=== PATIENT | female | born 1990 | race Caucasian/White ===

== ENCOUNTER → 2019-02-10 08:37 | Outpatient (CLI) | payer OTHER, MEDICAID, SELFPAY ==
--- NOTE | 2019-02-10 | DI.RAD.S_ITS ---
PROCEDURE: XR LUMBAR SPINE MIN 4V INDICATIONS: PAIN IN LEFT HIP TECHNIQUE: 5 views of the lumbar spine were acquired. COMPARISON: None. FINDINGS: Bones: 5 nonrib-bearing vertebrae are present. However, incidental note is made of partial lumbarization of the S1 vertebral body. There is normal bony alignment. No vertebral body compression fractures. No suspicious bony lesions. On the oblique images there are no pars interarticularis defects are evident. No significant degenerative changes of the lumbar spine are evident. There may be small Schmorl's nodes at L3-4 and L4-5. Intervertebral disc heights are well-maintained throughout the lumbar region. There is straightening of the normal lumbar lordosis without spondylolisthesis. Soft tissues: Overlying bowel gas pattern is normal. Moderate residual stool within the colon is noted. No suspicious soft tissue calcifications. Oblique images: No pars defects. IMPRESSION: 1. No significant degenerative changes of the lumbar spine. 2. Straightening of the normal lumbar lordosis without spondylolisthesis. No pars defects. Dictated by: Alfredo Galaviz M.D. on 02/10/2019 at 8:15 Approved by: Alfredo Galaviz M.D. on 02/10/2019 at 8:16
== END ==
PROVIDERS: Visit Provider Orthopaedic Surgery
DX: M25.552 Pain in left hip (principal); M54.32 Sciatica, left side
CPT/HCPCS: 72110

== ENCOUNTER 2019-08-04 22:24 | Emergency (ER) | payer OTHER, MEDICAID, SELFPAY ==
[2019-08-04 22:35] VITALS: BP 125/76; PULSE 96; RESP 20; TEMP 36.7; O2SAT 98; BMI 38.2
[2019-08-05 01:57] LABS: Add Manual Diff / Slide Review NO; Basophils Absolute Auto 0 /uL (0-100); Basophils Percent Auto 0.3 % (0-2); Eosinophils Absolute Auto 200 /uL (0-450); Hematocrit 38.7 % (36-46); Hemoglobin 13.4 g/dL (12.0-16.0); Lymphocytes Absolute Auto 3000 /uL (1100-4500); Lymphocytes Percent Auto 24.7 % (25-40); Mean Corpuscular HGB Conc 34.6 % (30-36); Mean Corpuscular Hemoglobin 29.2 PG (26-34); Mean Corpuscular Volume 84.4 fL (80-100); Monocytes Absolute Auto 800 /uL (0-900); Monocytes Percent Auto 6.3 % (3-14); Neutrophils Absolute Auto 8100 /uL (1500-7000); Neutrophils Percent Auto 66.7 % (50-75); Platelet Count 262 X10^3/uL (150-400); Red Blood Cell Count 4.59 X10^6/uL (4.0-5.2); Red Cell Distribution Width 12.8 % (11.6-14.8); White Blood Cell Count 12.1 X10^3/uL (4.5-11.0)
[2019-08-05 02:01] LABS: D Dimer 506 ng/mL (<230)
[2019-08-05 02:05] LABS: BUN Creatinine Ratio 18.8 (6-22); Blood Urea Nitrogen 15 mg/dL (7-17); C-Reactive Protein Quant 1.6 mg/dL (<1.0); Calcium 9.4 mg/dL (8.4-10.2); Carbon Dioxide 26 mmol/L (22-32); Chloride 103 mmol/L (98-107); Estimated Glomerular Filt Rate > 60.0 mL/min (>60); Glucose 82 mg/dL (70-100); HEMOLYSIS < 15 (0-50); Potassium 3.9 mmol/L (3.4-5.1); Sodium 139 mmol/L (137-145)
[2019-08-05 02:09] LABS: Erythrocyte Sedimentation Rate 7 MM/HR (0-20)
--- NOTE | 2019-08-05 02:39 | DI.US.S_ITS ---
PROCEDURE: US PERIPH VENOUS UP EXTREM RT INDICATIONS: PAIN, EDEMA TECHNIQUE: Real-time imaging, as well as color and pulse Doppler interrogation, was performed of the right upper extremity deep veins from the inferior neck to the antecubital fossa. COMPARISON: None. FINDINGS: The internal jugular vein, visualized portions of the subclavian vein, axillary, and brachial veins are free of intraluminal thrombus. Where physically possible, the veins are normally compressible. Color and pulse Doppler demonstrate normal intraluminal flow, with expected phasicity and pulsatility. Additional scanning of the cephalic and basilic veins of the superficial system demonstrate normal compressibility, without thrombus. IMPRESSION: Negative for deep venous thrombosis. Note: No significant discrepancy from the preliminary report. Dictated by: Perfecto Bello M.D. on 08/05/2019 at 9:28 Approved by: Perfecto Bello M.D. on 08/05/2019 at 9:28
--- NOTE | 2019-08-05 04:49 | ED.EXTPRO ---
HPI - Extremity Problem General Chief complaint: Extremity Problem,Nontraumatic Stated complaint: right arm numbness x3 days Time Seen by Provider: 08/05/19 00:38 Source: patient Mode of arrival: Ambulatory Limitations: no limitations History of Present Illness HPI Narrative: 29-year-old female daily smoker without significant medical history presents with a chief complaint of right arm pain starting with her index and middle finger and radiating up to her mid upper arm. She denies any injury nor numbness, tingling or weakness. She does state that she uses her right arm for significant amounts of work during the day and it seems to be worse with motion and improves with rest. She denies any injuries, recent IVs or history of blood clot. She has been on control for the past 3 weeks and smokes. Related Data Allergies Allergy/AdvReac Type Severity Reaction Status Date / Time No Known Drug Allergies Allergy Verified 08/04/19 22:40 Review of Systems Constitutional Constitutional: Denies chills, Denies fatigue, Denies fever(s), Denies frequent falls, Denies lethargy and Denies weakness Eyes Eyes: Denies change in vision, Denies eye discharge, Denies irritation and Denies loss of vision ENT Ears, Nose, Mouth, and Throat: Denies change in voice, Denies dizziness, Denies neck pain, Denies sore throat and Denies throat swelling Cardiovascular Cardiovascular: Denies chest pain, Denies irregular heart rhythm, Denies lightheadedness, Denies palpitations, Denies dyspnea, Denies dyspnea on exertion and Denies orthopnea Respiratory Respiratory: Denies cough, Denies dyspnea, Denies dyspnea on exertion and Denies wheezing Gastrointestinal Gastrointestinal: Denies abdominal pain, Denies change in bowel habits, Denies diarrhea, Denies nausea and Denies vomiting Genitourinary Genitourinary: Denies hematuria, Denies flank pain, Denies urinary incontinence and Denies urinary urgency Musculoskeletal Musculoskeletal: Denies back pain, Reports limited range of motion, Denies muscle weakness, Denies neck pain, Denies numbness, Reports radiating pain into limb and Denies tingling Integumentary/Breasts Skin/Breast: Denies pruritus, Denies erythema, Denies rash and Denies wounds Neurologic Neurologic: Denies behavioral changes, Denies confusion, Denies dizziness, Denies frequent falls, Denies loss of vision, Denies numbness, Denies tingling and Denies weakness Psychiatric Psychiatric: Denies anxiety, Denies behavioral changes, Denies confusion, Denies depression, Denies homicidal ideation and Denies suicidal ideation Endocrine Endocrine: Denies fatigue, Denies flushing and Denies palpitations Hematologic/Lymphatic Hematologic/Lymphatic: Denies easy bruising Allergic/Immunologic Allergic/Immunologic: Denies urticaria, Denies throat swelling and Denies wheezing Patient History Social History Smoking Status: Current every day smoker Smoking Status: Current every day smoker alcohol intake frequency: 0-2 drinks per day Substance Use Type: does not use Exam Narrative Exam Narrative: GENERAL: [29] year old patient appears stated age. Well-nourished, well-developed patient, in mild distress. HEAD: Atraumatic. Normocephalic. EYES: Pupils equal round and reactive. Extraocular motions intact. No scleral icterus. No injection or drainage. ENT: Nose without bleeding, purulent drainage. Throat without erythema, tonsillar hypertrophy or exudate. Airway patent. NECK: Trachea midline. Non tender CARDIOVASCULAR: Regular rate and rhythm without murmurs, gallops, or rubs. RESPIRATORY: Clear to auscultation. Breath sounds equal bilaterally. No wheezes, rales, or rhonchi. GASTROINTESTINAL: Abdomen soft, non-tender, nondistended. EXTREMITIES: Mild right upper extremity edema, sensation, strength and range of motion intact. Cap refills less than 2 seconds and distal radius pulse is bounding. Patient does have tenderness to palpation along the majority of her arm. BACK: Nontender without deformity or crepitance. No flank tenderness. NEURO: AOx3. SKIN: No rash or erythema of visible areas Initial Vital Signs Initial Vital Signs: Vital Signs Temperature 98.0 F 08/04/19 22:35 Pulse Rate 96 H 08/04/19 22:35 Respiratory Rate 20 08/04/19 22:35 Blood Pressure 125/76 08/04/19 22:35 Pulse Oximetry 98 08/04/19 22:35 Procedures Orthopedic Splinting/Casting Injury #1: Side: right Upper Extremity Injury Location: upper arm, forearm and wrist Upper Extremity Immobilizer: sling/shoulder immobilizer Post splinting neuro exam: intact Post splinting vascular exam: intact Placed by: Nursing Course Orders Ordered: ED Orders 08/05/19 01:43 Basic Metabolic Panel Stat C-Reactive Protein Quant Stat Complete Blood Count AUTO DIFF Stat D Dimer Stat Erythrocyte Sedimentation Rate Stat 08/05/19 02:39 US periph venous up extrem rt Stat Vital Signs Vital signs: Vital Signs - 8 hr 08/04/19 22:35 Temperature 98.0 F Pulse Rate 96 H Respiratory Rate 20 Blood Pressure 125/76 Pulse Oximetry 98 MDM - Extremity (Nontraumatic) Lab Data Result diagrams: 08/05/19 01:43 08/05/19 01:43 Labs: Lab Results 08/05/19 08/05/19 08/05/19 Range/Units 01:43 01:43 01:43 WBC 12.1 H (4.5-11.0) X10^3/uL RBC 4.59 (4.0-5.2) X10^6/uL Hgb 13.4 (12.0-16.0) g/dL Hct 38.7 (36-46) % MCV 84.4 (80-100) fL MCH 29.2 (26-34) PG MCHC 34.6 (30-36) % RDW 12.8 (11.6-14.8) % Plt Count 262 (150-400) X10^3/uL Neut % (Auto) 66.7 (50-75) % Lymph % (Auto) 24.7 L (25-40) % [place] % (Auto) 6.3 (3-14) % Eos % (Auto) 2.0 (2-4) % Baso % (Auto) 0.3 (0-2) % Neut # (Auto) 8100 H (0371-6766) /uL Lymph # (Auto) 3000 (7746-2827) /uL [place] # (Auto) 800 (0-900) /uL Eos # (Auto) 200 (0-450) /uL Baso # (Auto) 0 (0-100) /uL ESR 7 (0-20) MM/HR D-Dimer 506 H (<230) ng/mL Sodium 139 (137-145) mmol/L Potassium 3.9 (3.4-5.1) mmol/L Chloride 103 (98-107) mmol/L Carbon Dioxide 26 (22-32) mmol/L BUN 15 (7-17) mg/dL Creatinine 0.80 (0.52-1.04) mg/dL Estimated GFR > 60.0 (>60) mL/min BUN/Creatinine Ratio 18.8 (6-22) Glucose 82 (70-100) mg/dL Calcium 9.4 (8.4-10.2) mg/dL C-Reactive Protein 1.6 H (<1.0) mg/dL MDM Narrative Medical decision making narrative: Patient denies injury to her upper extremity. Patient is on exogenous estrogens and smokes and given elevated D-dimer and ultrasound ordered to rule out the presence of DVT which is negative. There is no warmth, erythema to suggest cellulitis. Patient does admit to repetitive use at work raising the suspicion of an inflammatory condition hence the use of sling and recommendation for anti-inflammatories, decreased use at work and close follow-up. She has been given return precautions and understands her diagnosis and plan. Discharge Plan Departure Patient Disposition: Home Clinical Impression: Arm pain, right Discharge Date/Time: 08/05/19 05:03 Instructions: DI for Arm Pain Activity Restrictions/Additional Instructions: *You have been diagnosed with [ right arm pain, possibly due to overuse from work. ] *What to do: *Take medications as directed *Follow up with your primary care provider in 2-3 days, call for an appointment. Let them know you were seen in the Emergency Department and that we ask that you be seen in follow up *Return to ER if you should have any new, worsening or concerning symptoms Stand Alone Forms: Work Release Note
[2019-08-05 05:03] VITALS: BP 126/80; PULSE 88; RESP 16; O2SAT 99
== END 2019-08-05 05:03 | disposition home or self-care (01) ==
PROVIDERS: Emergency Provider Emergency Medicine
DX: M79.601 Pain in right arm (principal)
CPT/HCPCS: 36415; 80048; 85025; 85379; 85651; 86140; 93971; 99284

== ENCOUNTER → 2019-08-09 17:11 | Outpatient (CLI) | payer OTHER, MEDICAID, SELFPAY ==
--- NOTE | 2019-08-09 | DI.RAD.S_ITS ---
PROCEDURE: XR CERVICAL SPINE 2V OR 3V INDICATIONS: radiculopathy, pain right arm TECHNIQUE: 3 view(s) of the cervical spine were acquired. COMPARISON: None. FINDINGS: Bones: No fractures or dislocations to the T1 level. The lateral masses of C1 appear intact on the odontoid view. No suspicious bony lesions. There is focal kyphosis centered at C5-6, with relative widening of the interspinous space posteriorly at C5-6 and C6-7. This may represent a normal variant for the patient but prior trauma with ligamentous laxity along the posterior spinous processes also could produce the appearance. Soft tissues: No prevertebral soft tissue swelling. IMPRESSION: Focal kyphosis as discussed with relative prominence of the posterior interspaces between the posterior spinous processes at C5-6 and C6-7. Flexion and extension imaging from lateral projection targeted to that area likely is warranted to determine whether there is associated subluxation abnormality. In addition, given symptomatology in this finding followup by MR scanning may be warranted to determine whether disc herniation is present. Dictated by: Bird Buck M.D. on 08/10/2019 at 9:59 Approved by: Bird Buck M.D. on 08/10/2019 at 10:01
--- NOTE | 2019-08-09 | DI.RAD.S_ITS ---
PROCEDURE: XR WRIST RT MIN 3V INDICATIONS: radial styloid tenosynovitis TECHNIQUE: 4 views of the wrist were acquired. COMPARISON: None. FINDINGS: Bones: No fractures or dislocations. No suspicious bony lesions. Scaphoid view: Normal. Soft tissues: No suspicious soft tissue calcifications. IMPRESSION: Normal examination. Dictated by: Bird Buck M.D. on 08/10/2019 at 10:02 Approved by: Bird Buck M.D. on 08/10/2019 at 10:02
== END ==
PROVIDERS: PCP Family Medicine; Referring Provider Family Medicine; Visit Provider Family Medicine
DX: M79.601 Pain in right arm (principal); M65.4 Radial styloid tenosynovitis [de Quervain]; M40.202 Unspecified kyphosis, cervical region
CPT/HCPCS: 72040; 73110

== ENCOUNTER 2021-09-15 09:20 | Emergency (ER) | payer OTHER, MEDICAID, SELFPAY ==
[2021-09-15 09:42] VITALS: BP 112/71; PULSE 85; RESP 16; TEMP 36.4; O2SAT 99; BMI 37.3
--- NOTE | 2021-09-15 09:50 | DI.RAD.S_ITS ---
PROCEDURE: XR RIBS BI MIN 4V W CXR1V INDICATIONS: Pain after a fall TECHNIQUE: 2 views of the bilateral ribs were acquired, along with a single view chest. COMPARISON: None. FINDINGS: Surgical changes and devices: None. Bones and chest wall: No fractures or dislocations. No suspicious bony lesions. Overlying soft tissues appear unremarkable. Lungs and pleura: No pleural effusions or pneumothorax. Lungs appear clear. Mediastinum: Mediastinal contours appear normal. Heart size is normal. IMPRESSION: No acute process. No acute fracture. No osseous lesion. If symptoms and/or clinical suspicion for pathology persist, further assessment with repeat, or advanced imaging (e.g., CT, MRI, or bone scan) may be helpful for further assessment. Dictated by: Alfredo Souza M.D. on 09/15/2021 at 10:31 Approved by: Alfredo Souza M.D. on 09/15/2021 at 10:33
--- NOTE | 2021-09-15 09:50 | DI.RAD.S_ITS ---
PROCEDURE: XR SHOULDER LT MIN 2V INDICATIONS: Pain after a fall TECHNIQUE: 3 views of the shoulder were acquired. COMPARISON: None. FINDINGS: Bones: No fractures or dislocations. No suspicious bony lesions. Visualized ribs appear intact. Soft tissues: No suspicious soft tissue calcifications. IMPRESSION: No acute fracture. No osseous lesion. If symptoms and/or clinical suspicion for pathology persist, further assessment with repeat, or advanced imaging (e.g., CT, MRI, or bone scan) may be helpful for further assessment. Dictated by: Alfredo Souza M.D. on 09/15/2021 at 10:33 Approved by: Alfredo Souza M.D. on 09/15/2021 at 10:33
--- NOTE | 2021-09-15 10:51 | ED_ITS ---
HPI - Fall General Chief Complaint: Fall Stated Complaint: Hurt chest, Fall, SOB Time Seen by Provider: 09/15/21 10:40 Source: patient Mode of arrival: Ambulatory History of Present Illness HPI Narrative: 31-year-old female who is here for evaluation of a left shoulder/ribs/chest wall discomfort. Patient fell several days ago. She states that she falls often but he did not give a specific reason as to the cause of this fall. States she hurt her left shoulder since then. Was not evaluated afterwards. He does have a sling in place that she used on her own that she had from a prior injury. Has some discomfort with moving her left shoulder Related Data Allergies Allergy/AdvReac Type Severity Reaction Status Date / Time No Known Drug Allergies Allergy Verified 09/15/21 09:42 Review of Systems Musculoskeletal Musculoskeletal: Reports system reviewed and no additional complaints, except as documented and Reports as per HPI Integumentary/Breasts Skin/Breast: Reports system reviewed and no additional complaints, except as documented and Reports as per HPI Neurologic Neurologic: Reports system reviewed and no additional complaints, except as documented and Reports as per HPI Hematologic/Lymphatic On Anticoagulants: No Patient History Medical History Healthy adult Social History Smoking Status: Current some day smoker Smoking Status: Current some day smoker alcohol intake frequency: 0-2 drinks per day Substance Use Type: does not use Exam Initial Vital Signs Initial Vital Signs: Vital Signs Temperature 97.6 F 09/15/21 09:42 Pulse Rate 85 09/15/21 09:42 Respiratory Rate 16 09/15/21 09:42 Blood Pressure 112/71 09/15/21 09:42 Pulse Oximetry 99 09/15/21 09:42 Const General: cooperative, comfortable and well developed HENCO Head: normal to inspection and normocephalic Resp Effort & Inspection: normal respiratory effort Cardio Rate: regular rate Skin General: no rashes or lesions noted Neuro Sensory Exam: no sensory deficits noted Extrem Other: Patient has discomfort over her left posterior shoulder and over the superior persons/lateral of the left shoulder as well. She is able to abduct her arm but he only to 90? secondary to discomfort however is able to hold her arm at this level. Course Orders Ordered: ED Orders 09/15/21 09:50 XR ribs BI min 4V w CXR1V Stat XR shoulder LT min 2V Stat Vital Signs Vital signs: Vital Signs - 8 hr 09/15/21 09:42 Temperature 97.6 F Pulse Rate 85 Respiratory Rate 16 Blood Pressure 112/71 Pulse Oximetry 99 MDM - Fall Imaging Data rib x ray: Radiologist's Impression: [address] [address] XRay Report Signed Patient: Ayaka Monk MR#: [id number] : 1990 Acct:[id number] Age/Sex: 31 / F Date of Service: 09/15/21 Loc: ED Accession Number: [id number] ?? Procedure: XR ribs BI min 4V w CXR1V Ordering Provider: Terrell Quiroz D.O. PROCEDURE:? XR RIBS BI MIN 4V W CXR1V ? INDICATIONS:? Pain after a fall ? TECHNIQUE:? 2 views of the bilateral ribs were acquired, along with a single view chest.? ? ? COMPARISON:? None. ? FINDINGS:? ? Surgical changes and devices:? None.? ? Bones and chest wall:? No fractures or dislocations.? No suspicious bony lesions.? Overlying soft tissues appear unremarkable.? ? Lungs and pleura:? No pleural effusions or pneumothorax.? Lungs appear clear.? ? Mediastinum:? Mediastinal contours appear normal.? Heart size is normal.? ? IMPRESSION:? No acute process. No acute fracture. No osseous lesion. If symptoms and/or clinical suspicion for pathology persist, further assessment with repeat, or advanced imaging (e.g., CT, MRI, or bone scan) may be helpful for further assessment. ? ? Dictated by: Alfredo Souza M.D. on 09/15/2021 at 10:31 ? ? Approved by: Alfredo Souza M.D. on 09/15/2021 at 10:33 Extremity x-ray #1: Radiologist's Impression: [address] [address] XRay Report Signed Patient: Ayaka Monk MR#: [id number] : 1990 Acct:[id number] Age/Sex: 31 / F Date of Service: 09/15/21 Loc: ED Accession Number: [id number] ?? Procedure: XR shoulder LT min 2V Ordering Provider: Terrell Quiroz D.O. PROCEDURE:? XR SHOULDER LT MIN 2V ? INDICATIONS:? Pain after a fall ? TECHNIQUE:? 3 views of the shoulder were acquired.? ? COMPARISON:? None. ? FINDINGS:? ? Bones:? No fractures or dislocations.? No suspicious bony lesions.? Visualized ribs appear intact.? ? Soft tissues:? No suspicious soft tissue calcifications.? ? IMPRESSION:? No acute fracture. No osseous lesion. If symptoms and/or clinical suspicion for pathology persist, further assessment with repeat, or advanced imaging (e.g ., CT, MRI, or bone scan) may be helpful for further assessment. ? ? Dictated by: Alfredo Souza M.D. on 09/15/2021 at 10:33 ? ? Approved by: Alfredo Souza M.D. on 09/15/2021 at 10:33? MDM Narrative Medical decision making narrative: Neurovascularly intact. No fractures on the x-ray. Do have some concern about potential rotator cuff injury given her presentation. We did discuss the sling and the importance of her keeping her shoulder mobile. Will have her follow with her primary doctor to discuss further evaluation to include potential physical therapy or other advanced imaging or referral to see Orthopedics. Conservative measures to include Tylenol and ibuprofen for discomfort. Discharge Plan Departure Patient Disposition: Home Clinical Impression: Left shoulder pain, Contusion of rib Instructions: How to Use a Sling, How To Perform RICE (Rest, Ice, Compress, Elevate) Activity Restrictions/Additional Instructions: I recommend that you contact your primary doctor to discuss further workup to include referral to see Orthopedics or Physical therapy. Use the sling like we discussed. Return to the emergency department for any new or worsening symptoms. He can take Tylenol/ibuprofen for discomfort. Referrals: Andria Hou MD [Primary Care Provider] - Stand Alone Forms: Work Release Note
[2021-09-15 11:12] VITALS: BP 118/76; PULSE 76; RESP 18; O2SAT 97
== END 2021-09-15 11:15 | disposition home or self-care (01) ==
PROVIDERS: Emergency Provider Emergency Medicine; PCP Student in an Organized Health Care Education/Training Program
DX: M25.512 Pain in left shoulder (principal); S20.219A Contusion of unspecified front wall of thorax, initial encounter; F17.200 Nicotine dependence, unspecified, uncomplicated; W19.XXXA Unspecified fall, initial encounter
CPT/HCPCS: 71111; 73030; 99281; 99283

== ENCOUNTER → 2022-04-12 15:34 | Outpatient (CLI) | payer OTHER, MEDICAID, SELFPAY ==
[2022-04-12 17:39] LABS: HCG Quantitative /Beta subunit 698.8 mIU/mL
== END ==
PROVIDERS: PCP Student in an Organized Health Care Education/Training Program; Referring Provider Obstetrics & Gynecology; Visit Provider Obstetrics & Gynecology
DX: Z34.90 Encounter for supervision of normal pregnancy, unspecified, unspecified trimester (principal); Z87.42 Personal history of other diseases of the female genital tract
CPT/HCPCS: 36415; 84702

== ENCOUNTER → 2022-04-14 09:41 | Outpatient (CLI) | payer OTHER, MEDICAID, SELFPAY ==
[2022-04-14 10:59] LABS: HCG Quantitative /Beta subunit 1376.4 mIU/mL
== END ==
PROVIDERS: PCP Student in an Organized Health Care Education/Training Program; Referring Provider Obstetrics & Gynecology; Visit Provider Obstetrics & Gynecology
DX: Z34.90 Encounter for supervision of normal pregnancy, unspecified, unspecified trimester (principal); Z87.42 Personal history of other diseases of the female genital tract
CPT/HCPCS: 36415; 84702

== ENCOUNTER → 2022-04-16 17:19 | Outpatient (CLI) | payer OTHER, SELFPAY ==
[2022-04-16 21:02] LABS: HCG Quantitative /Beta subunit 2868 mIU/mL
== END ==
PROVIDERS: PCP Student in an Organized Health Care Education/Training Program; Referring Provider Obstetrics & Gynecology; Visit Provider Obstetrics & Gynecology
DX: Z34.81 Encounter for supervision of other normal pregnancy, first trimester (principal); Z87.42 Personal history of other diseases of the female genital tract
CPT/HCPCS: 36415; 84702

== ENCOUNTER → 2022-04-21 06:30 | Outpatient (CLI) | payer OTHER, SELFPAY ==
--- NOTE | 2022-04-21 06:33 | DI.US.S_ITS ---
PROCEDURE: US OB <= 14 WEEKS FETUS INDICATIONS: Dating US/cramping OB OUTSIDE/PRIOR DATING DATA: Last menstrual period (LMP): Unknown LMP-based estimated date of delivery (VISHNU): Unknown First dating scan (date and location): 04/21/2022 Estimated date of delivery (VISHNU) from first dating scan: 12/16/2022 TECHNIQUE: Real-time scanning was performed of the fetus and maternal pelvic organs, with image documentation. Endovaginal scanning was also performed to better visualize the fetus and maternal ovaries. COMPARISON: None. FINDINGS: Embryo: Intrauterine gestational sac is seen with yolk sac and pole. [place]-rump length is 1.3 cm, consistent with an estimated gestational age of 5 weeks 6 days. Heart rate: 64 beats per minute Maternal organs: A probable anterior uterine intramural fibroid is seen measuring 1.1 x 1.0 x 0.9 cm. A right corpus luteum cyst is noted. Left ovary is not well visualized. IMPRESSION: 1. Single live intrauterine with estimated gestational age of 5 weeks 6 days, giving an ultrasound VISHNU of 12/16/2022. 2. heart rate is 64 beats per minute, likely related to early gestational age, but bradycardia not excluded. Recommend attention on follow-up exams. 3. Anterior intramural uterine fibroid measures up to 1.1 cm. We strive to produce accurate, complete, and clear reports of imaging services. To assist us in improving patient care, this report was composed using standard report templates and voice recognition software. Therefore, it may contain abnormal punctuation, insertions and/or omissions. Occasional wrong-word or sound-alike substitutions may occur. Though we review the report and make efforts to correct it, we do recommend that the report be read carefully in proper context to recognize any text inaccuracies. Approved by: Bar Sabillon M.D. on 04/21/2022 at 8:13
== END ==
PROVIDERS: PCP Student in an Organized Health Care Education/Training Program; Referring Provider Obstetrics & Gynecology; Visit Provider Obstetrics & Gynecology
DX: O26.891 Other specified pregnancy related conditions, first trimester (principal); R10.9 Unspecified abdominal pain; O34.81 Maternal care for other abnormalities of pelvic organs, first trimester; N83.11 Corpus luteum cyst of right ovary; O34.11 Maternal care for benign tumor of corpus uteri, first trimester; D25.1 Intramural leiomyoma of uterus
CPT/HCPCS: 76801; 76817

== ENCOUNTER 2022-05-01 21:00 | Emergency (ER) | payer OTHER, SELFPAY ==
[2022-05-01 21:04] VITALS: BP 115/78; PULSE 84; RESP 16; TEMP 36.6; O2SAT 99; BMI 34.9
[2022-05-01 21:32] LABS: Add Manual Diff / Slide Review NO; Basophils Absolute Auto 200 /uL (0-100); Basophils Percent Auto 1.8 % (0-2); Eosinophils Absolute Auto 200 /uL (0-450); Eosinophils Percent Auto 1.6 % (2-4); Hematocrit 37.3 % (36-46); Hemoglobin 12.8 g/dL (12.0-16.0); Lymphocytes Absolute Auto 2100 /uL (1100-4500); Lymphocytes Percent Auto 17.7 % (25-40); Mean Corpuscular HGB Conc 34.4 % (30-36); Mean Corpuscular Hemoglobin 28.9 PG (26-34); Monocytes Absolute Auto 600 /uL (0-900); Monocytes Percent Auto 4.9 % (3-14); Neutrophils Absolute Auto 8800 /uL (1500-7000); Platelet Count 235 X10^3/uL (150-400); Red Blood Cell Count 4.44 X10^6/uL (4.0-5.2); Red Cell Distribution Width 13.6 % (11.6-14.8); White Blood Cell Count 11.9 X10^3/uL (4.5-11.0)
[2022-05-01 21:35] LABS: Alanine Aminotransferase 23 IU/L (<35); Albumin 4.3 g/dL (3.5-5.0); Albumin Globulin Ratio 1.4 (1.0-2.8); Alkaline Phosphatase 65 U/L (38-126); Aspartate Aminotransferase 22 IU/L (14-36); BUN Creatinine Ratio 19.6 (6-22); Bilirubin Total 0.3 mg/dL (0.2-1.3); Blood Urea Nitrogen 11 mg/dL (7-17); Calcium 8.6 mg/dL (8.4-10.2); Carbon Dioxide 25 mmol/L (22-32); Chloride 100 mmol/L (98-107); Estimated Glomerular Filt Rate > 60 mL/min (>60); Globulin 3.1 g/dL (1.7-4.1); Glucose 88 mg/dL (70-100); HEMOLYSIS 29 (0-50); Lipase 50 U/L (23-300); Potassium 3.7 mmol/L (3.4-5.1); Sodium 134 mmol/L (137-145); Total Protein 7.4 g/dL (6.3-8.2)
--- NOTE | 2022-05-01 22:02 | DI.US.S_ITS ---
PROCEDURE: US OB <= 14 WEEKS FETUS INDICATIONS: BLEEDING OUTSIDE/PRIOR DATING DATA: Last menstrual period (LMP): Not available LMP-based estimated date of delivery (VISHNU): Not available. First dating scan (date and location): 04/21/22 Estimated date of delivery (VISHNU) from first dating scan: 12/16/22, +/-5 days. The calculations are made using the current VISHNU of 12/16/22. TECHNIQUE: Real-time scanning was performed of the fetus and maternal pelvic organs, with image documentation. Endovaginal scanning was also performed to better visualize the fetus and maternal ovaries. COMPARISON: [facility], , OB <= 14 WEEKS FETUS, 04/21/2022, 7:09. FINDINGS: Embryo: [place]-rump length 1.2 cm correlates with a gestational age of 7 weeks 2 days, plus or minus 5 days Heart rate: 153 beats per minute Maternal organs: Ovaries normal considering gestational status. Note is made of a small subchorionic hemorrhage at the amniotic sac margin measuring up to 1.9 x 2.2 x 1.5 cm. IMPRESSION: Early 1st trimester gestation, with appropriate interval growth with reference to the initial OB ultrasound for this dated 04/21/22. cardiac activity observed. A small subchorionic hemorrhage is incidentally noted measuring only 1.5 x 1.9 x 2.2 cm. We strive to produce accurate, complete, and clear reports of imaging services. To assist us in improving patient care, this report was composed using standard report templates and voice recognition software. Therefore, it may contain abnormal punctuation, insertions and/or omissions. Occasional wrong-word or sound-alike substitutions may occur. Though we review the report and make efforts to correct it, we do recommend that the report be read carefully in proper context to recognize any text inaccuracies. Dictated by: Bird Buck M.D. on 05/01/2022 at 22:49 Approved by: Bird Buck M.D. on 05/01/2022 at 22:54
[2022-05-01 22:27] LABS: HCG Quantitative /Beta subunit 42547 mIU/mL
--- NOTE | 2022-05-01 23:18 | ED.GENADULT ---
HPI - General Adult General Chief complaint: Vaginal Bleeding Stated complaint: 8 wks profuse vaginal bleed. Time Seen by Provider: 05/01/22 22:01 Source: patient Mode of arrival: Ambulatory History of Present Illness HPI narrative: 31-year-old female. . Has had a dating pelvic ultrasound who is here for evaluation of vaginal bleeding. States that it started this evening. Had quite a bit of clots but now it is just spotting. No urinary symptoms. No change in bowel habits. No vomiting. No fevers. She is a follow-up next week with an OB provider. She did do quite a bit of strenuous hiking today. Related Data Home Medications Medication Instructions Recorded Confirmed ferrous sulfate 325 mg (65 mg 325 mg PO DAILY 04/23/22 04/23/22 iron) tablet (Feosol) folic acid 400 mcg tablet 0.4 mg PO DAILY 04/23/22 04/23/22 omega 9-akh-oox-fish oil 100 1 cap PO .COMPLEX 04/23/22 04/23/22 mg-160 mg-1,000 mg capsule (Fish Oil) oxymetazoline 0.05 % nasal spray 1 spray intranasal BID 04/23/22 04/23/22 prenat.vits,escobar,[id number] 1 tab PO DAILY 04/23/22 04/23/22 Allergies Allergy/AdvReac Type Severity Reaction Status Date / Time No Known Drug Allergies Allergy Verified 04/23/22 08:00 Review of Systems Constitutional Constitutional: Reports system reviewed and no additional complaints, except as documented Gastrointestinal Gastrointestinal: Reports system reviewed and no additional complaints, except as documented Genitourinary Genitourinary: Reports system reviewed and no additional complaints, except as documented Hematologic/Lymphatic On Anticoagulants: No Patient History Medical History Anxiety Depression GERD (gastroesophageal reflux disease) Hemorrhoids HSV-1 infection Migraine with aura Nasal congestion PCOS (polycystic ovarian syndrome) Shingles Surgical History (Updated 04/23/22 @ 08:16 by Saray Simon RN) History of removal of skin mole S/P ACL repair Family History (Updated 04/23/22 @ 08:33 by Saray Simon RN) Mother Alcoholism Father Alcoholism Grandmother Coagulopathy Grandmother Leukemia Grandfather No problems noted. Family/Other Obsessive compulsive disorder Family/Other Neurological abnormality Brother Alcoholism Other Substance abuse Social History marital status: number of children: 3 (includes 2 stepchildren) household members: spouse, family (brother) and children lives independently: Yes caregiver/support person: Yes housing: apartment pets and animals: No education level: college (some college) occupational status: employed (desk/office job) current occupational exposures/hazards: No jacob/gnosticism: Tenriism special jacob needs: No travel history: recent (domestic only) seatbelt use: always water heater temp set < 120 deg: Yes working smoke detector in home: Yes fire extinguisher in home: Yes carbon monox detector in home: Yes firearms in home: No do you feel safe at home: Yes Smoking Status: Current some day smoker second hand exposure: Yes ( also smokes) alcohol intake: former (very rarely when not ) substance use type: does not use during the past year weight has: decreased > 10 lbs (intentional w/ diet and exercise) well-balanced diet: daily or most days daily servings fruits/ve or more times/day caffeine: Yes (aware of 200mg limit) Type(s) of exercise: walking (~7 miles/day), weight lifting and yoga frequency: daily additional social history: Pt reports that she and her almost split up recently but have decided to stay together in light of this . She reports that is nervous and excited, confirms that she is safe in her home, no concerns about violence or infidelity. Long family Hx of alcohol and drug abuse and pt is very concerned about how this may affect her children. Smoking Status: Current some day smoker alcohol intake frequency: 0-2 drinks per day Substance Use Type: does not use Exam Initial Vital Signs Initial Vital Signs: Vital Signs Temperature 97.8 F 05/01/22 21:04 Pulse Rate 84 05/01/22 21:04 Respiratory Rate 16 05/01/22 21:04 Blood Pressure 115/78 05/01/22 21:04 Pulse Oximetry 99 05/01/22 21:04 Oxygen Delivery Method 05/01/22 21:04 Const General: cooperative, comfortable and No ill appearing HENMT Head: normal to inspection and normocephalic Resp Effort & Inspection: normal respiratory effort Cardio Rate: regular rate GI Inspection: normal to inspection Skin General: no rashes or lesions noted Neuro General: patient alert, patient awake, patient oriented x3 and moves all extremities Course Orders Ordered: ED Orders 05/01/22 21:17 ABO RH Type Stat Beta HCG, Quant [HCG Quantitative /Beta subunit] Stat Complete Blood Count AUTO DIFF Stat Comprehensive Metabolic Panel Stat Lipase Stat 05/01/22 22:02 OB <= 14 weeks fetus Stat Vital Signs Vital signs: Vital Signs - 8 hr 05/01/22 21:04 05/01/22 23:32 Temperature 97.8 F Pulse Rate 84 83 Respiratory Rate 16 18 Blood Pressure 115/78 95/53 L Pulse Oximetry 99 98 Oxygen Delivery Method Room Air Room Air Medical Decision Making Lab Data Lab results reviewed: Yes I reviewed the patient's lab results. Result diagrams: 05/01/22 21:17 05/01/22 21:17 Labs: Lab Results 05/01/22 05/01/22 05/01/22 Range/Units 21:17 21:17 21:17 WBC 11.9 H (4.5-11.0) X10^3/uL RBC 4.44 (4.0-5.2) X10^6/uL Hgb 12.8 (12.0-16.0) g/dL Hct 37.3 (36-46) % MCV 84.0 (80-100) fL MCH 28.9 (26-34) PG MCHC 34.4 (30-36) % RDW 13.6 (11.6-14.8) % Plt Count 235 (150-400) X10^3/uL Neut % (Auto) 74.0 (50-75) % Lymph % (Auto) 17.7 L (25-40) % [place] % (Auto) 4.9 (3-14) % Eos % (Auto) 1.6 L (2-4) % Baso % (Auto) 1.8 (0-2) % Neut # (Auto) 8800 H (1154-5443) /uL Lymph # (Auto) 2100 (7033-4211) /uL [place] # (Auto) 600 (0-900) /uL Eos # (Auto) 200 (0-450) /uL Baso # (Auto) 200 H (0-100) /uL Sodium 134 L (137-145) mmol/L Potassium 3.7 (3.4-5.1) mmol/L Chloride 100 (98-107) mmol/L Carbon Dioxide 25 (22-32) mmol/L BUN 11 (7-17) mg/dL Creatinine 0.56 (0.52-1.04) mg/dL Estimated GFR > 60 (>60) mL/min BUN/Creatinine Ratio 19.6 (6-22) Glucose 88 (70-100) mg/dL Calcium 8.6 (8.4-10.2) mg/dL Total Bilirubin 0.3 (0.2-1.3) mg/dL AST 22 (14-36) IU/L ALT 23 (<35) IU/L Alkaline Phosphatase 65 (38-126) U/L Total Protein 7.4 (6.3-8.2) g/dL Albumin 4.3 (3.5-5.0) g/dL Globulin 3.1 (1.7-4.1) g/dL Albumin/Globulin Ratio 1.4 (1.0-2.8) Lipase 50 (23-300) U/L HCG, Quant 67363 mIU/mL Blood Type 05/01/22 Range/Units 21:17 WBC (4.5-11.0) X10^3/uL RBC (4.0-5.2) X10^6/uL Hgb (12.0-16.0) g/dL Hct (36-46) % MCV (80-100) fL MCH (26-34) PG MCHC (30-36) % RDW (11.6-14.8) % Plt Count (150-400) X10^3/uL Neut % (Auto) (50-75) % Lymph % (Auto) (25-40) % [place] % (Auto) (3-14) % Eos % (Auto) (2-4) % Baso % (Auto) (0-2) % Neut # (Auto) (4061-2032) /uL Lymph # (Auto) (2166-7273) /uL [place] # (Auto) (0-900) /uL Eos # (Auto) (0-450) /uL Baso # (Auto) (0-100) /uL Sodium (137-145) mmol/L Potassium (3.4-5.1) mmol/L Chloride (98-107) mmol/L Carbon Dioxide (22-32) mmol/L BUN (7-17) mg/dL Creatinine (0.52-1.04) mg/dL Estimated GFR (>60) mL/min BUN/Creatinine Ratio (6-22) Glucose (70-100) mg/dL Calcium (8.4-10.2) mg/dL Total Bilirubin (0.2-1.3) mg/dL AST (14-36) IU/L ALT (<35) IU/L Alkaline Phosphatase (38-126) U/L Total Protein (6.3-8.2) g/dL Albumin (3.5-5.0) g/dL Globulin (1.7-4.1) g/dL Albumin/Globulin Ratio (1.0-2.8) Lipase (23-300) U/L HCG, Quant mIU/mL Blood Type O Positive Imaging Data US - OB: Radiologist's Impression: [address] [address] Ultrasound Report Signed Patient: Ayaka Adorno MR#: [id number] : 1990 Acct:[id number] Age/Sex: 31 / F Date of Service: 05/01/22 Loc: Accession Number: [id number] ?? Procedure: US OB <= 14 weeks fetus Ordering Provider: Terrell Quiroz D.O. PROCEDURE:? US OB <= 14 WEEKS FETUS ? INDICATIONS:? BLEEDING ? OUTSIDE/PRIOR DATING DATA:? Last menstrual period (LMP):? Not available LMP-based estimated date of delivery (VISHNU):? Not available.? First dating scan (date and location):? 04/21/22 Estimated date of delivery (VISHNU) from first dating scan:? 12/16/22, +/-5 days. The calculations are made using the current VISHNU of 12/16/22. ? TECHNIQUE:? Real-time scanning was performed of the fetus and maternal pelvic organs, with image documentation.? Endovaginal scanning was also performed to better visualize the fetus and maternal ovaries.? ? COMPARISON:? [facility], , OB <= 14 WEEKS FETUS, 04/21/2022, 7:09. ? FINDINGS:? ? Embryo:? [place]-rump length 1.2 cm correlates with a gestational age of 7 weeks 2 days, plus or minus 5 days Heart rate:? 153 beats per minute ? Maternal organs:? Ovaries normal considering gestational status. ? Note is made of a small subchorionic hemorrhage at the amniotic sac margin measuring up to 1.9 x 2.2 x 1.5 cm.? ? ? IMPRESSION:? Early 1st trimester gestation, with appropriate interval growth with reference to the initial OB ultrasound for this dated 04/21/22.? cardiac activity observed.? A small subchorionic hemorrhage is incidentally noted measuring only 1.5 x 1.9 x 2.2 cm. ? We strive to produce accurate, complete, and clear reports of imaging services. To assist us in improving patient care, this report was composed using standard report templates and voice recognition software. Therefore, it may contain abnormal punctuation, insertions and/or omissions. Occasional wrong-word or sound-alike substitutions may occur. Though we review the report and make efforts to correct it, we do recommend that the report be read carefully in proper context to recognize any text inaccuracies. ? ? ? Dictated by: Bird Buck M.D. on 05/01/2022 at 22:49 ? ? Approved by: Bird Buck M.D. on 05/01/2022 at 22:54 MDM Narrative Medical decision making narrative: Rh positive. Single intrauterine gestation noted on the ultrasound. I discussed this with the patient. She is a follow-up with legislative correspondent later this week. I did discuss the findings of the ultrasound with her. She was given return precautions. She expressed understanding and agreement. Discharge Plan Departure Patient Disposition: Home Clinical Impression: Threatened miscarriage Instructions: DI for Vaginal Bleeding During Activity Restrictions/Additional Instructions: Continue to take all of your medications as directed and keep all of your scheduled medical appointments. Return to the emergency department for any new or worsening symptoms. Prescriptions: No Action prenat.vits,escobar,jis-[id number]-jwywx Tablet 1 tab PO DAILY ferrous sulfate [Feosol] 325 mg (65 mg iron) tablet 325 mg PO DAILY folic acid 400 mcg tablet 0.4 mg PO DAILY Fish Oil 100-160-1,000 mg capsule 1 cap PO .COMPLEX Rx Instructions: 1 cap orally when she remembers; oxymetazoline 0.05 % spray,non-aerosol 1 spray intranasal BID Label Comments: Pt has been using this daily for years. At this point, if she stops she has such severe rebound congestion that she cannot breathe through her nose at all. Referrals: Andria Hou MD [Primary Care Provider] - Visit Report Forms: Patient Portal/API
[2022-05-01 23:32] VITALS: BP 95/53; PULSE 83; RESP 18; O2SAT 98
== END 2022-05-01 23:33 | disposition home or self-care (01) ==
PROVIDERS: Emergency Provider Emergency Medicine; PCP Student in an Organized Health Care Education/Training Program
DX: O20.0 Threatened abortion (principal); Z3A.01 Less than 8 weeks gestation of pregnancy
CPT/HCPCS: 36415; 76801; 76817; 80053; 83690; 84702; 85025; 86900; 86901; 99283; 99284

== ENCOUNTER → 2022-05-04 14:59 | Outpatient (CLI) | payer OTHER, SELFPAY ==
[2022-05-04 16:54] LABS: Add Manual Diff / Slide Review NO; Basophils Absolute Auto 0 /uL (0-100); Basophils Percent Auto 0.4 % (0-2); Eosinophils Absolute Auto 100 /uL (0-450); Eosinophils Percent Auto 0.8 % (2-4); Hematocrit 37.2 % (36-46); Hemoglobin 12.5 g/dL (12.0-16.0); Lymphocytes Absolute Auto 1900 /uL (1100-4500); Lymphocytes Percent Auto 18.7 % (25-40); Mean Corpuscular HGB Conc 33.6 % (30-36); Mean Corpuscular Hemoglobin 28.8 PG (26-34); Mean Corpuscular Volume 85.5 fL (80-100); Monocytes Absolute Auto 700 /uL (0-900); Monocytes Percent Auto 6.8 % (3-14); Neutrophils Absolute Auto 7500 /uL (1500-7000); Neutrophils Percent Auto 73.3 % (50-75); Platelet Count 244 X10^3/uL (150-400); Red Blood Cell Count 4.35 X10^6/uL (4.0-5.2); Red Cell Distribution Width 13.6 % (11.6-14.8); White Blood Cell Count 10.2 X10^3/uL (4.5-11.0)
[2022-05-05 07:02] LABS: Varicella IgG Antibody 1013 index (Immune >165)
[2022-05-05 08:59] LABS: RPR Screen Non Reactive (Non Reactive)
[2022-05-06 10:09] LABS: Hepatitis B Surface Antigen NEGATIVE s/c (NEGATIVE)
[2022-05-06 10:25] LABS: HIV 1 & 2 Ab/Ag 4th Gen Combo NEGATIVE (NEGATIVE); Hep C Virus Ab w/Reflex Quant NEGATIVE s/c (NEGATIVE)
[2022-05-06 14:35] LABS: Rubella Antibody IgG 80.9 IU/mL (>15)
== END ==
PROVIDERS: PCP Student in an Organized Health Care Education/Training Program; Referring Provider Obstetrics & Gynecology; Visit Provider Obstetrics & Gynecology
DX: Z34.81 Encounter for supervision of other normal pregnancy, first trimester (principal)
CPT/HCPCS: 36415; 80055; 86787; 86803; 86850; 86900; 86901; 87389

== ENCOUNTER → 2022-06-01 15:26 | Outpatient (CLI) | payer OTHER, SELFPAY ==
[2022-06-01 19:25] LABS: Appearance Urine UA CLEAR; Bilirubin Urine UA NEGATIVE (NEGATIVE); Color Urine UA YELLOW; Glucose Urine UA NEGATIVE (Negative); Ketones Urine UA NEGATIVE (NEGATIVE); Leukocyte Esterase Urine UA TRACE (NEGATIVE); Nitrite Urine UA NEGATIVE (Negative); Occult Blood Urine UA 1+ (Negative); Protein Urine UA NEGATIVE (Negative); Urobilinogen Urine UA 0.2 E.U./dL (0.2)
[2022-06-01 19:32] LABS: Amorphous Sediment Urine 1+; Bacteria Urine Moderate (10-30); RBC Urine 1-5/HPF (0-5/HPF); Squamous Epithelial Cell Urine 10-30 /HPF (0-5/HPF); WBC Urine 5-10/HPF (0-5/HPF)
[2022-06-01 21:05] LABS: Urine N gonorrhoeae NOT DETECTED
[2022-06-01 21:06] LABS: Urine Chlamydia NOT DETECTED
== END ==
PROVIDERS: PCP Student in an Organized Health Care Education/Training Program; Visit Provider Obstetrics & Gynecology
DX: Z34.81 Encounter for supervision of other normal pregnancy, first trimester (principal)
CPT/HCPCS: 81003; 81015; 87086; 87491; 87591

== ENCOUNTER → 2022-07-05 13:06 | Outpatient (CLI) | payer OTHER, SELFPAY ==
[2022-07-05 13:25] LABS: Specimen Label NATERA
[2022-07-07 20:07] LABS: AFP Value 18.8 ng/mL (.); Gest Age on Col Date 16.7 weeks (.); Insulin Dep Diabetes No (.); OSBR Risk 1IN 10000 (.); Results Report (.); Test Results *Screen Negative* (.)
== END ==
PROVIDERS: PCP Student in an Organized Health Care Education/Training Program; Referring Provider Obstetrics & Gynecology; Visit Provider Obstetrics & Gynecology
DX: Z34.82 Encounter for supervision of other normal pregnancy, second trimester (principal); Z3A.16 16 weeks gestation of pregnancy
CPT/HCPCS: 36415; 82105

== ENCOUNTER → 2022-07-19 09:27 | Outpatient (CLI) | payer OTHER, SELFPAY ==
[2022-07-20 11:36] LABS: Candida species Positive (Negative); Gardnerella vaginalis Negative (Negative); Trichomoas vaginalis Negative (Negative)
== END ==
PROVIDERS: PCP Student in an Organized Health Care Education/Training Program; Visit Provider Obstetrics & Gynecology
DX: N89.8 Other specified noninflammatory disorders of vagina (principal)
CPT/HCPCS: 87480; 87510; 87660

== ENCOUNTER → 2022-08-02 08:18 | Outpatient (CLI) | payer OTHER, SELFPAY ==
--- NOTE | 2022-08-02 08:19 | DI.US.S_ITS ---
PROCEDURE: US OB >= 14 WEEKS FETUS INDICATIONS: 20 Week Anatomy Scan OUTSIDE/PRIOR DATING DATA: Last menstrual period (LMP): Uncertain. First dating scan (date and location): 04/21/2022 Estimated date of delivery (VISHNU) from first dating scan: 12/16/2022. TECHNIQUE: Real-time scanning was performed of the fetus, with image documentation and biometric measurements. COMPARISON: 04/21/2022, 05/01/2022 FINDINGS: General: A single living intrauterine gestation is present. Presentation: Vertex. Placenta: Placental position is posterior. No previa. Placental edge is 2.8 cm from the internal os. Amniotic fluid index: 13.7 cm, normal range is 5-24 cm. heart rate: 152 beats per minute. Maternal cervical canal: 3.6 cm long. Normal lower limit is 2.5 cm. biometrics: Biparietal diameter: 4.7 cm, 20 weeks and 2 days Head circumference: 17.6 cm, 20 weeks and 1 day Abdominal circumference: 14.9 cm, 20 weeks and 1 day Femur length: 3.3 cm, 20 weeks and 2 days Clinically estimated gestational age: 20 weeks and 4 days Composite gestational age from present scan: 20 weeks and 2 days Estimated weight and percentile: 28th percentile, 341 g Anatomic survey: Neuro: Ventricles are non-dilated at less than 10 mm. Cisterna magna is normal at 3-11 mm. Cerebellum is normal in size and morphology. Nuchal skin fold: Normal at less than 6 mm between 14-21 weeks gestational age. Face: Nose lips was not well seen. Profile within normal limits. Spine: Skin line overlying the sacrum not well seen. Heart: RVOT was not well seen. LVOT and four-chamber view within normal limits. Diaphragm: Not well seen Stomach: Stomach appear mildly distended. Kidneys: No hydronephrosis. Normal is less than 5 mm in 2nd trimester, less than 7 mm in 3rd trimester. Cord: 3-vessel cord has orthotopic insertion. Bladder: Normal in size. Extremities: All 4 extremities identified. Anterior fibroid again seen measuring 2.4 x 2.9 cm. IMPRESSION: Intrauterine gestation at 20 weeks and 4 days. biometry today is concordant, with EFW at the 28th percentile. Multiple anatomic structures not well seen on today's study, including RVOT, sacral spine skin line, nose lips, diaphragm. In addition, the stomach appear mildly distended. Consider follow-up imaging to reassess. We strive to produce accurate, complete, and clear reports of imaging services. To assist us in improving patient care, this report was composed using standard report templates and voice recognition software. Therefore, it may contain abnormal punctuation, insertions and/or omissions. Occasional wrong-word or sound-alike substitutions may occur. Though we review the report and make efforts to correct it, we do recommend that the report be read carefully in proper context to recognize any text inaccuracies. Dictated by: Matheus Rios M.D. on 08/02/2022 at 13:33 Approved by: Matheus Rios M.D. on 08/02/2022 at 13:42
[2022-08-02 12:32] LABS: Add Manual Diff / Slide Review NO; Basophils Absolute Auto 0 /uL (0-100); Basophils Percent Auto 0.1 % (0-2); Eosinophils Absolute Auto 100 /uL (0-450); Eosinophils Percent Auto 1.1 % (2-4); Hemoglobin 12.3 g/dL (12.0-16.0); Lymphocytes Absolute Auto 1500 /uL (1100-4500); Lymphocytes Percent Auto 16.4 % (25-40); Mean Corpuscular Hemoglobin 29.7 PG (26-34); Mean Corpuscular Volume 84.8 fL (80-100); Monocytes Absolute Auto 400 /uL (0-900); Monocytes Percent Auto 4.5 % (3-14); Neutrophils Absolute Auto 7100 /uL (1500-7000); Neutrophils Percent Auto 77.9 % (50-75); Platelet Count 213 X10^3/uL (150-400); Red Blood Cell Count 4.12 X10^6/uL (4.0-5.2); Red Cell Distribution Width 13.3 % (11.6-14.8); White Blood Cell Count 9.1 X10^3/uL (4.5-11.0)
[2022-08-02 13:30] LABS: TSH w/ Reflex to FT4 0.44 uIU/mL (0.47-4.68)
[2022-08-02 14:17] LABS: Free T4, Direct Thyroxine 0.73 ng/dL (0.78-2.19)
== END ==
PROVIDERS: Physician Assistant Medical; PCP Student in an Organized Health Care Education/Training Program; Referring Provider Obstetrics & Gynecology; Visit Provider Obstetrics & Gynecology
DX: O99.282 Endocrine, nutritional and metabolic diseases complicating pregnancy, second trimester (principal); E04.9 Nontoxic goiter, unspecified; O99.891 Other specified diseases and conditions complicating pregnancy; L65.9 Nonscarring hair loss, unspecified; R53.83 Other fatigue; Z3A.20 20 weeks gestation of pregnancy
CPT/HCPCS: 36415; 76811; 84439; 84443; 85025

== ENCOUNTER → 2022-09-28 10:42 | Outpatient (CLI) | payer OTHER, SELFPAY ==
[2022-09-28 12:39] LABS: Hematocrit 31.4 % (36-46); Hemoglobin 10.9 g/dL (12.0-16.0)
[2022-09-28 12:59] LABS: GTT (PREG) 1 Hour PP 50gm Dose 140 mg/dL (76-139)
[2022-09-28 13:14] LABS: Free T4, Direct Thyroxine 0.73 ng/dL (0.78-2.19)
== END ==
PROVIDERS: PCP Student in an Organized Health Care Education/Training Program; Referring Provider Obstetrics & Gynecology; Visit Provider Obstetrics & Gynecology
DX: Z34.82 Encounter for supervision of other normal pregnancy, second trimester (principal); R79.89 Other specified abnormal findings of blood chemistry; Z3A.23 23 weeks gestation of pregnancy
CPT/HCPCS: 36415; 82950; 84439; 84443; 85014; 85018

== ENCOUNTER → 2022-09-30 09:58 | Outpatient (CLI) | payer OTHER, SELFPAY ==
[2022-09-30 11:43] LABS: Glucose Fasting Gestational 75 mg/dL (76-95)
[2022-09-30 12:35] LABS: Glucose 1 Hour Gest 169 mg/dL (76-180)
[2022-09-30 13:28] LABS: Glucose Tol Interp,Gestational INTERPRETATION
[2022-09-30 14:03] LABS: Glucose 3 Hour Gest 88 mg/dL (76-140)
[2022-09-30 15:23] LABS: Glucose 2 Hour Gest 154 mg/dL (76-155)
== END ==
PROVIDERS: PCP Student in an Organized Health Care Education/Training Program; Referring Provider Obstetrics & Gynecology; Visit Provider Obstetrics & Gynecology
DX: O99.810 Abnormal glucose complicating pregnancy (principal)
CPT/HCPCS: 36415; 82951; 82952

== ENCOUNTER 2022-10-26 12:20 | Outpatient (CLI) | payer OTHER, SELFPAY | END 2022-10-26 13:04 | disposition home or self-care (01) | LOC: LABOR 12:44 → OB 10-28 10:29 | PROVIDERS: PCP Student in an Organized Health Care Education/Training Program; Referring Provider Obstetrics & Gynecology; Visit Provider Obstetrics & Gynecology | DX: O36.8130 Decreased fetal movements, third trimester, not applicable or unspecified (principal); Z3A.32 32 weeks gestation of pregnancy | CPT/HCPCS: 59025; G0378; G0379 ==

== ENCOUNTER → 2022-11-19 11:47 | Outpatient (CLI) | payer OTHER, SELFPAY ==
[2022-11-20 11:37] LABS: Strep Grp B PCR NEG for Grp B Strep
--- NOTE | 2022-11-21 14:38 | PM.CALLCOV.1 ---
Call Coverage Note Note Date of Patient Contact: 11/21/22 Time of Patient Contact: 14:38 Narrative of Care Provided: Ayaka called to report abdominal pain senior living between her belly button and pubic bone that is worse and constant with movement, better and goes away with rest. Has been going on all day. She does not remember labor; does not think this is the same as her induction contractions. Baby is very active and seems more active when Ayaka feels pain. She denies vaginal bleeding, loss of fluid more than her usual extra vaginal discharge for 3-4 weeks. She has been hydrating well today; has only eaten eggs. Has had 4 normal BMs today, which has been usual for a few weeks. Just woke up from a 2 hour nap. Now, just woke up from a nap so not in pain; got up and while walking, feeling a R sided cramp. Does not want to come in for evaluation at this time; will come in if pain worsens. Reports history of after IOL approx 8 years ago. IUP at 33 weeks Abdominal pain History of Recommend coming in for evaluation now. Reviewed that we can only evaluate in person to be sure she and baby are okay. Patient will come in if things worsen.
== END ==
PROVIDERS: PCP Student in an Organized Health Care Education/Training Program; Visit Provider Obstetrics & Gynecology
DX: Z34.83 Encounter for supervision of other normal pregnancy, third trimester (principal); Z3A.36 36 weeks gestation of pregnancy
CPT/HCPCS: 87653

== ENCOUNTER 2022-12-10 15:46 | Outpatient (CLI) | payer OTHER, SELFPAY ==
--- NOTE | 2022-12-11 16:46 | PM.OBTRLD ---
Visit Information Visit Information Date of evaluation: 12/10/22 Primary OB Provider: Addie Waters On-call OB Provider: Addie Waters Reason for Evaluation: Yes non-stress test non-stress test reason: decreased movement Vital Signs Vital Signs: BP 120/75 [facility] Medical History (Updated 11/15/22 @ 22:46 by Addie Waters MD) Acne Allergies Anemia Anxiety Carpal tunnel syndrome Depression Eczema GERD (gastroesophageal reflux disease) Headache Hemorrhoids HSV-1 infection Migraine with aura Migraines Nasal congestion Ovarian cyst Painful menstrual periods PCOS (polycystic ovarian syndrome) Psoriasis Shingles Shoulder pain Vertigo Surgical History (Updated 04/23/22 @ 08:16 by Saray Simon RN) History of removal of skin mole S/P ACL repair Family History (Updated 04/23/22 @ 08:33 by Saray Simon RN) Mother Alcoholism Father Alcoholism Grandmother Coagulopathy Grandmother Leukemia Grandfather No problems noted. Family/Other Obsessive compulsive disorder Family/Other Neurological abnormality Brother Alcoholism Other Substance abuse Social History marital status: number of children: 3 (includes 2 stepchildren) household members: spouse, family (brother) and children lives independently: Yes caregiver/support person: Yes housing: apartment pets and animals: No education level: college (some college) occupational status: employed (desk/office job) current occupational exposures/hazards: No jacob/roman catholic: Oriental Orthodox special jacob needs: No travel history: recent (domestic only) seatbelt use: always water heater temp set < 120 deg: Yes working smoke detector in home: Yes fire extinguisher in home: Yes carbon monox detector in home: Yes firearms in home: No do you feel safe at home: Yes Smoking Status: Current some day smoker second hand exposure: Yes ( also smokes) alcohol intake: former (very rarely when not ) substance use type: does not use during the past year weight has: decreased > 10 lbs (intentional w/ diet and exercise) well-balanced diet: daily or most days daily servings fruits/ve or more times/day caffeine: Yes (aware of 200mg limit) Type(s) of exercise: walking (~7 miles/day), weight lifting and yoga frequency: daily additional social history: Pt reports that she and her almost split up recently but have decided to stay together in light of this . She reports that is nervous and excited, confirms that she is safe in her home, no concerns about violence or infidelity. Long family Hx of alcohol and drug abuse and pt is very concerned about how this may affect her children. Evaluation Evaluation Baseline heart rate: 130 Variability: Moderate (11-25) monitor accelerations: Present Monitor Decelerations: Absent Diagnosis, Plan/Disposition Plan/Disposition Plan: Assessment: 32-year-old 3 para 1 at 39-,1/7 weeks gestation with decreased movement Reactive nonstress test Plan: Discharge to home Follow-up as scheduled next week for regular OB appointment kick counts reviewed OB Disposition: home
== END 2022-12-10 16:30 | disposition home or self-care (01) ==
LOC: OB 12-13 09:50
PROVIDERS: PCP Student in an Organized Health Care Education/Training Program; Referring Provider Obstetrics & Gynecology; Visit Provider Obstetrics & Gynecology
DX: O36.8130 Decreased fetal movements, third trimester, not applicable or unspecified (principal); Z3A.39 39 weeks gestation of pregnancy
CPT/HCPCS: 59025; G0378; G0379

== ENCOUNTER 2022-12-14 08:57 | Observation (INO) | payer OTHER, SELFPAY ==
[2022-12-14 09:28] LABS: Add Manual Diff / Slide Review NO; Basophils Absolute Auto 0 /uL (0-100); Basophils Percent Auto 0.2 % (0-2); Eosinophils Absolute Auto 100 /uL (0-450); Eosinophils Percent Auto 0.6 % (2-4); Lymphocytes Absolute Auto 1400 /uL (1100-4500); Lymphocytes Percent Auto 14.8 % (25-40); Mean Corpuscular HGB Conc 34.2 % (30-36); Mean Corpuscular Hemoglobin 29.1 PG (26-34); Mean Corpuscular Volume 85.1 fL (80-100); Monocytes Absolute Auto 700 /uL (0-900); Monocytes Percent Auto 6.9 % (3-14); Neutrophils Absolute Auto 7500 /uL (1500-7000); Neutrophils Percent Auto 77.5 % (50-75); Platelet Count 156 X10^3/uL (150-400); Red Blood Cell Count 4.47 X10^6/uL (4.0-5.2); Red Cell Distribution Width 15.3 % (11.6-14.8); White Blood Cell Count 9.7 X10^3/uL (4.5-11.0)
[2022-12-14 09:37] LABS: Aspartate Aminotransferase 29 IU/L (14-36); BUN Creatinine Ratio 18.4 (6-22); Blood Urea Nitrogen 7 mg/dL (7-17); Estimated Glomerular Filt Rate > 60 mL/min (>60); Uric Acid 4.1 mg/dL (2.5-6.2)
[2022-12-14 10:11] LABS: Creatinine Urine Random 14.7 mg/dL; Protein (Total) Urine Random 17 mg/dL (0-12); Protein Creatinine Ratio Urine 1.15 GRAM/24H
--- NOTE | 2022-12-14 10:34 | DI.US.S_ITS ---
PROCEDURE: US OB BIOPHYSICAL PROFILE INDICATIONS: PRE-ECLAMPSIA OUTSIDE/PRIOR DATING DATA: Last menstrual period (LMP): Not available. LMP-based estimated date of delivery (VISHNU): Not available. First dating scan (date and location): 04/21/2022 at . Estimated date of delivery (VISHNU) from first dating scan: 12/16/2022. TECHNIQUE: Real-time scanning was performed of the fetus, with image documentation and biometric measurements. Biophysical profile was also obtained. COMPARISON: US, OB <= 14 WEEKS FETUS, 04/21/2022, 7:09. [facility], , US OB >= 14 WEEKS FETUS, 10/19/2022, 11:23. [facility], , US OB >= 14 WEEKS FETUS, 09/28/2022, 10:32. FINDINGS: General: A single living intrauterine gestation is present. Presentation: Vertex. Placenta: Placental position is posterior , without previa. Amniotic fluid index: 12.8 cm, normal range is 5-24 cm. Single deepest vertical pocket is 6.5 cm. heart rate: 126 beats per minute. Maternal cervical canal: Not visualized. Biophysical profile: Tone: 2 points. Movement: 2 points. Respiration: 2 points. Largest pocket of fluid: 2 points. IMPRESSION: 1. A single living intrauterine gestation is redemonstrated. 2. Normal biophysical profile. 3. Normal ARTURO. We strive to produce accurate, complete, and clear reports of imaging services. To assist us in improving patient care, this report was composed using standard report templates and voice recognition software. Therefore, it may contain abnormal punctuation, insertions and/or omissions. Occasional wrong-word or sound-alike substitutions may occur. Though we review the report and make efforts to correct it, we do recommend that the report be read carefully in proper context to recognize any text inaccuracies. Dictated by: Esteban Saul M.D. on 12/14/2022 at 12:14 Approved by: Esteban Saul M.D. on 12/14/2022 at 12:24
== END 2022-12-14 11:55 | disposition home or self-care (01) ==
PROVIDERS: Admitting Provider Obstetrics & Gynecology; PCP Student in an Organized Health Care Education/Training Program; Referring Provider Obstetrics & Gynecology; Visit Provider Obstetrics & Gynecology
DX: O26.893 Other specified pregnancy related conditions, third trimester (principal); R51.9 Headache, unspecified; R03.0 Elevated blood-pressure reading, without diagnosis of hypertension; Z3A.39 39 weeks gestation of pregnancy
CPT/HCPCS: 59025; 76819; 82570; 84156; 84450; 84550; 85025; G0378; G0379

== ENCOUNTER 2022-12-14 19:15 | Inpatient (IN) | payer OTHER, SELFPAY ==
[2022-12-14] MEDS: DINOPROSTONE VAG (CERVIDIL) 10 MG VAG (20:53)
[2022-12-14 20:56] LABS: Add Manual Diff / Slide Review NO; Basophils Absolute Auto 0 /uL (0-100); Basophils Percent Auto 0.1 % (0-2); Eosinophils Absolute Auto 100 /uL (0-450); Eosinophils Percent Auto 0.6 % (2-4); Hematocrit 36.9 % (36-46); Hemoglobin 12.4 g/dL (12.0-16.0); Lymphocytes Absolute Auto 1700 /uL (1100-4500); Lymphocytes Percent Auto 13.5 % (25-40); Mean Corpuscular HGB Conc 33.5 % (30-36); Mean Corpuscular Hemoglobin 28.7 PG (26-34); Mean Corpuscular Volume 85.7 fL (80-100); Monocytes Absolute Auto 800 /uL (0-900); Monocytes Percent Auto 6.7 % (3-14); Neutrophils Absolute Auto 9700 /uL (1500-7000); Neutrophils Percent Auto 79.1 % (50-75); Platelet Count 152 X10^3/uL (150-400); Red Blood Cell Count 4.31 X10^6/uL (4.0-5.2); White Blood Cell Count 12.3 X10^3/uL (4.5-11.0)
--- NOTE | 2022-12-15 08:28 | PM.OBHP.IH.1 ---
OB HPI Date/Time Date of admission: 12/14/22 Date Patient Seen: 12/15/22 Time Patient Seen: 08:28 History of Present Condition Chief complaint: OB VISHNU Calculator Estimated Delivery Date Method Current WG Current Estimate 12/16/22 Ultrasound #1 39w 6d Other Estimates 11/08/22 LMP (Uncertain) 45w 2d 12/16/22 Ultrasound #2 39w 6d Estimated Gestational Age (weeks): 39+6 : 3 Para: 1 care: good care, initiated at week # (7), number of visits (12) and pounds weight gain (76) Dating criteria OB: LMP confirmed by 1st trimester US Ultrasounds: normal 1st trimester US and normal mid trimester US Obstetrical complications: gestational hypertension Medical complications OB: other (Hypothyroid) Indications Indication for induction OB: gestational HTN/pre-eclampsia and other (LGA baby) Preadmission Labs Last OB Lab Results: Blood Type O Positive 12/14/22 20:30 Antibody Screen Negative 12/14/22 20:30 Hematocrit 36.9 % (36-46) 12/14/22 20:30 Hemoglobin 12.4 g/dL (12.0-16.0) 12/14/22 20:30 Hepatitis B Surface Antigen Negative s/c (NEGATIVE) 05/04/22 15:07 Hepatitis C Antibody Negative s/c (NEGATIVE) 05/04/22 15:07 Rubella Antibody 80.9 IU/mL (>15) 05/04/22 15:07 Varicella-Zoster IgG Antibody 1013 index (Immune >165) 05/04/22 15:07 Glucose 1 Hour 140 mg/dL (76-139) H 09/28/22 10:52 Group B Streptococcus (PCR) Neg for grp b strep 11/19/22 11:47 Glucose Tolerance Testing: Fasting (75), 1 hr (169), 2 hr (154) and 3 hr (88) -: Chlamydia screen: positive (Tx'd, PHUONG negative), Gonorrhea screen: negative and Urine: negative -: PAP smear: Normal Genetic Screens: Cell-free DNA: Normal (Normal female) External Labs -: Urine: negative Prior (ies) Past Pregnancies Del. Date GA/Weeks Labor Lgth Wt Sex Route Outcome Anesthesia Place Delv Breastfeed Preg Comp Name 09/18/10 14 spontaneous 02/18/15 41.3 5 9 lb 8 oz Male vaginal live - full term [place], [place] 10 months none Yakov Delivery Date: 09/18/10 Last Updated by: Saray Simon RN required D&C Evaluation Evaluation Baseline heart rate: 145 Variability: Moderate (11-25) monitor accelerations: Present Monitor Decelerations: Absent Contraction Frequency (minutes): 5 Uterine Contraction Intensity: Mild Status: Category l Dilation (cm): 2 Effacement (%): 75 station: -2 Position of cervix: posterior Consistency: medium [facility] Medical History (Updated 12/14/22 @ 10:10 by Addie Waters MD) Acne Allergies Anemia Anxiety Carpal tunnel syndrome Depression Eczema GERD (gastroesophageal reflux disease) Headache Hemorrhoids HSV-1 infection Migraine with aura Migraines Nasal congestion Ovarian cyst Painful menstrual periods PCOS (polycystic ovarian syndrome) Psoriasis Shingles Shoulder pain Vertigo Surgical History (Updated 04/23/22 @ 08:16 by Saray Simon RN) History of removal of skin mole S/P ACL repair Family History (Updated 04/23/22 @ 08:33 by Saray Simon RN) Mother Alcoholism Father Alcoholism Grandmother Coagulopathy Grandmother Leukemia Grandfather No problems noted. Family/Other Obsessive compulsive disorder Family/Other Neurological abnormality Brother Alcoholism Other Substance abuse Social History marital status: number of children: 3 (includes 2 stepchildren) household members: spouse, family (brother) and children lives independently: Yes caregiver/support person: Yes housing: apartment pets and animals: No education level: college (some college) occupational status: employed (desk/office job) current occupational exposures/hazards: No jacob/worship: Yazidi special jacob needs: No travel history: recent (domestic only) seatbelt use: always water heater temp set < 120 deg: Yes working smoke detector in home: Yes fire extinguisher in home: Yes carbon monox detector in home: Yes firearms in home: No do you feel safe at home: Yes Smoking Status: Unknown if ever smoked second hand exposure: Yes ( also smokes) alcohol intake: former (very rarely when not ) substance use type: does not use during the past year weight has: decreased > 10 lbs (intentional w/ diet and exercise) well-balanced diet: daily or most days daily servings fruits/ve or more times/day caffeine: Yes (aware of 200mg limit) Type(s) of exercise: walking (~7 miles/day), weight lifting and yoga frequency: daily additional social history: Pt reports that she and her almost split up recently but have decided to stay together in light of this . She reports that is nervous and excited, confirms that she is safe in her home, no concerns about violence or infidelity. Long family Hx of alcohol and drug abuse and pt is very concerned about how this may affect her children. Meds Home Medications and Allergies Home Medications Medication Instructions Recorded Confirmed Type ferrous sulfate 325 mg (65 mg 325 mg PO DAILY 04/23/22 12/14/22 History iron) tablet (Feosol) folic acid 400 mcg tablet 0.4 mg PO DAILY 04/23/22 12/14/22 History omega 3-kqo-rsy-fish oil 100 1 cap PO .COMPLEX 04/23/22 12/14/22 History mg-160 mg-1,000 mg capsule (Fish Oil) oxymetazoline 0.05 % nasal spray 1 spray intranasal BID 04/23/22 12/14/22 History prenat.vits,escobar,fvm-hpag-rnlgz 1 tab PO DAILY 04/23/22 12/14/22 History fluconazole 150 mg tablet 150 mg PO DAILY #1 tab 07/23/22 12/14/22 Rx (Diflucan) levothyroxine 50 mcg capsule 75 mcg PO DAILY #90 caps 09/28/22 12/14/22 Rx Allergies Allergy/AdvReac Type Severity Reaction Status Date / Time No Known Drug Allergies Allergy Verified 12/14/22 08:30 OB Exam Narrative Exam Narrative: Generally: Patient mildly uncomfortable with contractions Lungs: Clear to auscultation bilaterally Cardiovascular: Regular rate and rhythm Fundal height: 41 cm Estimated weight: 9 lb Extremities: 1+ edema, 1+ DTRs Objective Labs 12/14/22 20:30 Labs: Laboratory Results - last 24 hr 12/14/22 12/14/22 20:30 20:30 WBC 12.3 H RBC 4.31 Hgb 12.4 Hct 36.9 MCV 85.7 MCH 28.7 MCHC 33.5 RDW 15.0 H Plt Count 152 Neut % (Auto) 79.1 H Lymph % (Auto) 13.5 L [place] % (Auto) 6.7 Eos % (Auto) 0.6 L Baso % (Auto) 0.1 Neut # (Auto) 9700 H Lymph # (Auto) 1700 [place] # (Auto) 800 Eos # (Auto) 100 Baso # (Auto) 0 Blood Type O Positive Antibody Screen Negative Assessment and Plan Assessment and Plan Assessment and Plan narrative: Assessment: 32-year-old 2 para 1 at 39+6 wks gestation H/O rapid delivery Gestational hypertension s/p Cervidil Plan: AROM when able Expectant management to Time Spent with Patient Total time spent with greater than 50% in coordination of care (as documented) at patient's floor/unit and/or counseling patient:: 15-24 minutes
[2022-12-15] MEDS: LACTATED RINGERS 1,000 ML 100 ML IV ×2 (09:30→22:04)
[2022-12-15] MEDS: OXYTOCIN PREMIX 30 UNIT/500 ML PLAST..BAG IV ×2 (10:35→19:46)
--- NOTE | 2022-12-15 12:26 | PM.OBPNLAB ---
Date/Time Date Patient Seen: 12/15/22 Time Patient Seen: 12:26 Pain Control Pain control: tolerating well Pelvic Exam Dilation (cm): 3 Effacement (%): 80 station: -1 Amniotic membrane status: Bulging Contractions Contractions on admission: none Pitocin rate (mU/min): 6 Contraction frequency (min): 3 Contraction duration (min): 1 Contraction intensity: Moderate Status status: Category l Heart Rate Baseline: 135 Monitor Accelerations: Present Monitor Decelerations: Absent Monitor Variability: Moderate Assessment and Plan Assessment: induction ongoing Comments: AROM with copious clear amniotic fluid Epidural as necessary Expected management to spontaneous vaginal delivery
--- NOTE | 2022-12-15 15:45 | PM.AN.REGBLK ---
[facility] <Kraig Sanchez CRNA - Last Filed: 12/15/22 16:04> Pre-procedure Procedure: Continuous Lumbar Epidural for L&D Attending OB provider: Addie Waters PMH/ROS narrative: See EMR for pertinent medical/surgical history Hx: No personal or family history of anesthesia problems. ASA Class: II Labs: Hct 36.9 % (36-46) 12/14/22 20:30 Plt Count 152 X10^3/uL (150-400) 12/14/22 20:30 Medications: Current Medications Generic Name Dose Route Start Last Admin Trade Name Freq PRN Reason Stop Dose Admin Calcium Carbonate 1,000 mg 12/14/22 19:28 Calcium Carbonate 500 Mg Tab PO Q4HR PRN Dyspepsia Carboprost Tromethamine 250 mcg 12/14/22 19:28 Carboprost 250 Mcg/Ml Ampul IM Q90M PRN Bleeding Diphenhydramine HCl 25 mg 12/15/22 12:54 Diphenhydramine 50 Mg/Ml Vial IV Q10M PRN Pruritis Ephedrine Sulfate 10 mg 12/15/22 12:54 Ephedrine 50 Mg/Ml Vial IV Q5M PRN Blood pressure decrease more than 20% of baseline. Fentanyl 50 mcg 12/14/22 19:28 Fentanyl 100 Mcg/2 Ml Inj IV Q1H PRN Pain, Moderate (4-6) Oxytocin/Lactated Ringer's 30 unit in 500 mls @ 2 mls/hr 12/14/22 19:30 12/15/22 10:35 Oxytocin Premix IV 2 milliunit/min TITRATE KIZZY 2 mls/hr Administration Protocol 2 MILLIUNIT/MIN Lactated Ringer's 1,000 mls @ 100 mls/hr 12/14/22 19:30 12/15/22 09:30 Lactated Ringers IV 100 mls/hr CONT KIZZY Administration Oxytocin/Lactated Ringer's 30 unit in 500 mls @ 200 mls/hr 12/14/22 19:28 Oxytocin Premix IV CONT PRN Bleeding Protocol Tranexamic Acid 1,000 mg/ 100 mls @ 200 mls/hr 12/14/22 19:28 Sodium Chloride IV NOW PRN Bleeding FENT 2MCG/ML BUPIV 0.125% EPI 200 mcg in 100 mls @ 10 mls/hr 12/15/22 13:00 Fentanyl/Bupiv/Ns 2mcg/Ml - 0.125% EPIDURAL CONT KIZZY Levothyroxine Sodium 25 mcg 12/16/22 06:00 Levothyroxine 25 Mcg Tablet PO DAILY@0600 KIZZY Lidocaine HCl 20 ml 12/14/22 19:28 Lidocaine 1% 20 Ml INJ INTRA-OP PRN Post Delivery Methylergonovine Maleate 0.2 mg 12/14/22 19:28 Methylergonovine 0.2 Mg/Ml Vial IM NOW PRN Bleeding Methylergonovine Maleate 0.2 mg 12/14/22 19:28 Methylergonovine 0.2 Mg Tablet PO Q6HR PRN Heavy Bleeding Misoprostol 800 mcg 12/14/22 19:28 Misoprostol 200 Mcg Tablet GA NOW PRN Bleeding Misoprostol 400 mcg 12/14/22 19:28 Misoprostol 200 Mcg Tablet SL NOW PRN Bleeding Nalbuphine HCl 2.5 mg 12/15/22 12:54 Nalbuphine 20 Mg/Ml Ampul IV Q10M PRN Pruritis Naloxone HCl 0.2 mg 12/14/22 19:28 Naloxone 0.4 Mg/Ml Vial IV Q2MIN PRN Opiate Reversal Ondansetron HCl 4 mg 12/14/22 19:28 Ondansetron 4 Mg/2 Ml Inj IV Q4HR PRN Nausea And Vomiting Oxytocin 10 unit 12/14/22 19:28 Oxytocin 10 Unit/Ml Vial IM NOW PRN Bleeding Allergies: Allergies Allergy/AdvReac Type Severity Reaction Status Date / Time No Known Drug Allergies Allergy Verified 12/14/22 08:30 Procedure Insertion date: 12/15/22 Insertion time: 14:14 Prep/Local: 1% lidocaine (Prepped with Chlorhexadine, ample dry time greater than 3 minutes) Interspace: Initial attempt L3-4, successful attempt L2-3 Patient position: sitting Needle: 18 gauge Alyssatead Loss of resistance with: saline (PF saline with bubble) HARPER at (cm): 8 Catheter placed at SKIN (cm): 13 Catheter in SPACE (cm): 5 Sensory level: T8 bilateral Insertion: No CSF, No Blood, No Paresthesia with insertion, No Paresthesia with injection and No Test dose reaction Initial Medications TEST DOSE time: 14:15 TEST DOSE: 1.5% lidocaine with epinephrine 1:200k (mL): 3 BOLUS DOSE time: 14:18 BOLUS DOSE (mL): 4 BOLUS DOSE med: other (0.125% PF bupivacaine with 2 mcg/mL PF fentanyl) Infusion INFUSION: 0.125% bupivacaine and with fentanyl 2 mcg/mL Initial rate (mL/hr): 10 Post-procedure Anesthesia time START: 13:13 <Chris Grace CRNA - Last Filed: 12/16/22 00:07> Infusion Subsequent interventions: 1830 - pt c/o 8/10 INTENSE middle/low pain with contractions, worsening despite PCEA use, assess dermatone just below T10. Bupivacaine 0.25% 5mL administered MANNY per anesthesia w/ (+) relief , pain decrease to mild intensity 2/10 with contractions. VS remain stable. chief of staff notified of intervention. Continuing to monitor. 2030 - pt MANNY volume / reservior zeroed out w/ air in line at pump. New bag, re-primed w/o difficulty. Patient pain worsened significantly during that time, re-dose w/ 5mL 0.25% bupivacaine x 2 doses over 10 minutes w/ adequate relief over . Mild pain at LL abd extending down to groin tolerable per patient at 3 out of 10 rating. Continue to monitor. 2200 - patient plan change to per PROFESSOR OF THEATER assessment. Please see patient care / Epidural catheter dosing reflected on operative/anesthesia flow record through to recovery. Post-procedure Anesthesia time END: 23:55 Post-procedure Anesthesia Assessment: Yes CV function: HR/BP stable, Yes Resp function: RR/sat/airway adequate, Yes Post-op hydration adequate, Yes Pain control adequate, Yes Nausea & vomiting absent, Yes Temperature > 36 C, Yes Mental status appropriate and Yes Anesthesia complications (No anesthesia complications - epidural catheter removed intact, bandaid dsg)
--- NOTE | 2022-12-15 17:52 | PM.OBPNLAB ---
Date/Time Date Patient Seen: 12/15/22 Time Patient Seen: 17:53 Pain Control Pain control: epidural Pelvic Exam Dilation (cm): 6 Effacement (%): 90 station: -1 Amniotic membrane status: Ruptured Contractions Contractions on admission: none Monitor mode: External Pitocin rate (mU/min): 4 Contraction frequency (min): 4 Contraction duration (min): 1 Contraction intensity: Strong/Firm Status status: Category l Heart Rate Baseline: 130 Monitor Accelerations: Present Monitor Decelerations: Early Monitor Variability: Moderate Assessment and Plan Assessment: active labor Comments: [id number] with peanut ball Intrauterine pressure catheter placed to assess adequacy of contractions
--- NOTE | 2022-12-15 19:52 | PM.OBPNLAB ---
Date/Time Date Patient Seen: 12/15/22 Time Patient Seen: 19:52 Pain Control Pain control: epidural Pelvic Exam Dilation (cm): 6 Effacement (%): 100 station: 0 Amniotic membrane status: Ruptured Contractions Monitor mode: External Pitocin rate (mU/min): 0 Contraction frequency (min): 4 Contraction duration (min): 1 Contraction intensity: Moderate Intrauterine tone measurement: 120 Status status: Category l Heart Rate Baseline: 135 Monitor Accelerations: Present Monitor Decelerations: Early and Late Monitor Variability: Moderate Assessment and Plan Assessment: active labor and induction ongoing Comments: Restart Pitocin Expectant management to
[2022-12-15] MEDS: FENT 2MCG/ML BUPIV 0.125% EPI 200 MCG/100 ML PLAST..BAG 10 MCG EPIDURAL (20:29)
--- NOTE | 2022-12-15 21:59 | PM.OBPNLAB ---
Date/Time Date Patient Seen: 12/15/22 Time Patient Seen: 21:59 Pain Control Pain control: epidural Comments: Called to see patient for deep variable D cells Pelvic Exam Dilation (cm): 6 Effacement (%): 100 station: 0 Amniotic membrane status: Ruptured Contractions Contractions on admission: none Monitor mode: External Pitocin rate (mU/min): 0 Contraction frequency (min): 4 Contraction duration (min): 1 Contraction intensity: Strong/Firm Intrauterine tone measurement: 120 Status status: Category l Heart Rate Baseline: 135 Monitor Accelerations: Present Monitor Decelerations: Early, Late and Variable Monitor Variability: Minimal Comments: Reactive tachycardia Assessment and Plan Plan: Comments: Assessment: 32-year-old 3 para 1 at 39-,6/7 weeks gestation Nonreassuring heart rate tracing, remote from delivery Plan: Primary low-transverse section The risks, benefits, and alternatives to the procedure were explained to the patient. The risks including bleeding, infection, injury to the bowel, bladder, or ureters. She understands these risks and agrees to proceed. A full par Q was held and consent form was signed.
--- NOTE | 2022-12-15 22:08 | PM.PREOP ---
Pre-operative Note COVID-19 Criteria for continued procedure: Non-surgical alternatives not available or appropriate per current SOC Interval Note History & Physical reviewed/Exam performed by Physician: Yes Changes to H&P: No H&P completed within 30 days and has changed as indicated here:: 12/15/22
[2022-12-15] MEDS: CEFAZOLIN VIAL 3 GM in SODIUM CHLORIDE 0.9% 100 ML IV (22:35)
--- NOTE | 2022-12-15 22:47 | SUR.OPER ---
Supine on Padded OR bed, head on pillow, safety belt at thigh, arms secured on padded arm boards at <90 degrees abduction. Bump under right buttock. Legs uncrossed with pillow under knees, gel pad to heels, tape over blanket to lower legs.
--- NOTE | 2022-12-15 23:15 | SUR.OPER ---
Pre operative heart tones in 130s. Baby girl born at 2245. Placenta and cord blood delivered at 2246. Placenta sent with L&D RN Elena. Cord blood collected by RT Nayla Nagy for blood gas.
--- NOTE | 2022-12-15 23:38 | P.OP_ITS ---
Operative Date/Time/Diagnoses Date of procedure: 12/15/22 Time of procedure: 23:38 Pre-op diagnosis: 39-5/7 weeks gestation Nonreassuring heart rate tracing Post-op diagnosis: same Procedure & Clinicians Procedure: Primary low-transverse section Same procedure as scheduled: Yes Indications: Nonreassuring heart rate tracing Surgeon: Addie Maldonado Yes if Unassisted: No Senior Health Consultant: Georgi Quintanilla Anesthesia Type: Epidural (with duramorph) Operative Notes Findings: Live female in the LOT presentation Nuchal cord x1 Extension of the uterine incision Closure Type: primary Specimen(s): cord blood, cord pH and placenta Intraoperative meds administered: Duramorph, Ketorolac and Pitocin Applied: Catheter (To continuous drainage) Estimated Blood Loss (mL): 1,000 Blood products transfused: none Procedure in detail: The patient was taken to the operating room where she was placed in the dorsal supine position with a leftward tilt. She was prepped and draped in the usual sterile fashion. A timeout was performed. After epidural analgesia was found to be adequate, a Pfannenstiel skin incision was made 2 fingerbreadths above the pubic symphysis and carried through to the underlying layer fascia. The fascia was nicked in the midline, and the incision extended bilaterally with the Levin scissors. The superior aspect of the fascial incision was grasped with a Sheila clamps, elevated, and the underlying rectus muscles dissected off sharply and bluntly. Attention was then turned to the inferior aspect of this incision which in a similar fashion was grasped with a Hawley clamps, elevated, and the underlying rectus muscles dissected off sharply and bluntly. The rectus muscles were in the midline. The peritoneum was identified, grasped between 2 hemostats, and entered sharply with the Metzenbaum scissors. This incision was extended superiorly and inferiorly with good visualization of the bladder. The bladder blade was inserted. The vesicouterine peritoneum was identified, grasped with the pickup, and entered sharply with the Metzenbaum scissors. This incision was extended bilaterally, and the bladder flap was created digitally. The bladder blade was reinserted. The lower uterine segment was incised in a transverse fashion with the scalpel. Upon entering the amniotic sac there was a small amount of clear amniotic fluid. The 's head was delivered without difficulty. The nose and mouth were suctioned with bulb suction. The remainder of the body delivered without difficulty. The cord was double clamped and cut. The infant was handed off to waiting RN and RT. The placenta was delivered by expression. The uterus was cleared of all clots and debris. There was found to be an extension of the uterine incision in the midline. This was repaired in a running interlocking suture with #1 chromic. The uterine incision was repaired with #1 chromic in a running interlocking fashion, and a second layer the same suture was used for an imbricating layer. Hemostasis was achieved. The tubes and ovaries were examined and were found to be normal. The gutters were cleared of all clots and debris. The bladder flap was reapproximated using 2-0 Vicryl in a running fashion. The parietal peritoneum was closed using 2-0 Vicryl in a running fashion. The fascia was reapproximated using 0 Vicryl in a running fashion. The subcutaneous layer was copiously irrigated with warm normal saline. 6 simple interrupted sutures of 3-0 Vicryl were placed to reapproximate the subcutaneous layer. The skin was closed with 4-0 Monocryl in a subcuticular fashion. Steri-Strips were placed. An Aquacel dressing was placed. The uterus was expressed of a small amount of old blood. Sponge, lap, and instrument counts were correct x-2. The patient tolerated the procedure well, and was taken to PACU in stable condition. Complications: none [place] Baby 1: Gender: Female Presentation: vertex Position: Left Occiput Transverse Placental Delivery Description: Expressed Cord Vessel Description: 3 Vessels, Nuchal Cord (X1), Reduced and Clamped/Cut score (1 min): 8 score (5 min): 9 weight: 9 lb 15.4 oz Post-operative Condition: stable Disposition: PACU Aftercare: routine postop
[2022-12-15 23:39] VITALS: BP 115/78; PULSE 89; RESP 23; TEMP 36.4; O2SAT 100
[2022-12-15 23:44] VITALS: BP 140/99; PULSE 100; RESP 27; O2SAT 99
[2022-12-15] MEDS: HYDROMORPHONE 2 MG INJ (23:47)
[2022-12-15 23:49] VITALS: BP 132/90; PULSE 101; RESP 19; O2SAT 100
[2022-12-15 23:54] VITALS: BP 137/90; PULSE 95; RESP 15; O2SAT 99
[2022-12-16] VITALS: BP 142/58; PULSE 104; RESP 16; O2SAT 98
[2022-12-16 00:09] VITALS: BP 115/72; BP 91/57; PULSE 68; PULSE 95; RESP 16; RESP 17; TEMP 36.5; O2SAT 98
[2022-12-16 00:12] VITALS: TEMP 36.7
[2022-12-16 00:14] VITALS: BP 106/61; PULSE 94; RESP 21; O2SAT 98
--- NOTE | 2022-12-16 00:26 | SUR.PHASEI ---
Elena OB RN present at bedside. Report given. VS stable. Patient transferred to the center.
[2022-12-16] MEDS: LACTATED RINGERS 1,000 ML 999 ML IV (01:14)
[2022-12-16] MEDS: KETOROLAC 30 MG/ML VIAL IV (05:25)
[2022-12-16] MEDS: LEVOTHYROXINE 75 MCG TABLET PO (06:04)
[2022-12-16] MEDS: LANOLIN OINT 7 GM 1 APPLIC TOP (06:04)
[2022-12-16 06:13] LABS: Hematocrit 30.9 % (36-46); Hemoglobin 10.6 g/dL (12.0-16.0)
[2022-12-16] MEDS: DOCUSATE 100 MG CAPSULE PO (09:02)
[2022-12-16] MEDS: PRENATAL VIT,CALC/IRON/FOLIC 1 TABLET 1 TAB PO (09:02)
[2022-12-16] MEDS: IBUPROFEN 600 MG TABLET PO ×2 (15:56→22:06)
[2022-12-16] MEDS: OXYCODONE IR 5 MG TABLET PO ×2 (15:56→22:07)
--- NOTE | 2022-12-16 22:15 | PM.OBPN.1 ---
Subjective - OB Subjective Patient comments: no complaints, pain well controlled, tolerating diet and other (Finally voided without the catheter) baby status: doing well and bottle feeding well [place] feeding status: exclusively bottle feeding Date Patient Seen: 12/16/22 Time Patient Seen: 17:30 Interval history: Postop day # 021 status post primary low-transverse section for a nonreassuring heart rate tracing. Patient was not able to void right away without the catheter. An in and out catheterization was performed. The second time she voided 500 cc. No nausea or vomiting. She is tolerating a diet. Bottle feeding is going well. She is ambulating. Exam Vital Signs (past 8 hours): Oxygen Delivery Method Room Air Narrative Exam Narrative: Generally: Patient lying in bed on her left side, no acute distress Lungs: Clear to auscultation bilaterally Cardiovascular: Regular rate and rhythm Fundus: Firm at U -1 Incision: Clean dry and intact with Aquacel dressing Extremities: 1+ edema, negative [place] Objective Labs 12/16/22 05:55 Labs: Laboratory Results - last 24 hr 12/16/22 05:55 Hgb 10.6 L Hct 30.9 L Assessment & Plan Plan day: 1 plan OB: routine postop care Time Spent With Patient Time: Total time spent is greater than 50% in coordination of care (as documented) at patient's floor/unit and/or counseling patient: Time with patient: 15-24 minutes
[2022-12-17] MEDS: IBUPROFEN 600 MG TABLET PO (04:16)
[2022-12-17] MEDS: LEVOTHYROXINE 75 MCG TABLET PO (07:38)
[2022-12-17] MEDS: OXYCODONE IR 10 MG TABLET PO (10:32)
[2022-12-17] MEDS: DOCUSATE 100 MG CAPSULE PO (10:32)
[2022-12-17 11:03] VITALS: BP 116/74; PULSE 90; RESP 18; TEMP 36.8
--- NOTE | 2022-12-17 19:55 | P.DS_ITS ---
Discharge Providers Provider Date of admission: 12/14/22 19:15 Discharge Date: 12/17/22 Primary care physician: Andria Hou MD Consults: 12/14/22 19:28 Consult to Anesthesiology Urgent Comment: Consulting Provider: Anesthesiologist Reason for consultation: Epidural Has provider been notified: No 12/16/22 02:31 Consult to Meter Maker Routine Comment: Discharge provider: Addie Waters MD Summary Hospital Course Date Patient Seen: 12/17/22 Time Patient Seen: 08:30 Diagnoses: 39+ 5 weeks' gestation Gestational hypertension History of rapid labor Induction of labor Nonreassuring heart rate tracing Hospital Course: Patient is a 32-year-old 3 para 2 who presented on December 15, 2022 for an induction of labor due to gestational hypertension at 39-,5/7 weeks gestation. She was started on Pitocin. Artificial rupture membranes was performed. She received an epidural for pain management. An intrauterine pressure catheter was placed to assess uterine contractions. When patient progressed to 6 cm, she b merle having deep variable decelerations. A decision was made to proceed with a primary low-transverse section. She underwent this procedure without complication. Her post course was unremarkable and she was discharged home on post op day #1. She is to follow-up at 1 week for an Aquacel dressing removal. Peripartum Data Infant Delivery Method: Emergency Section Procedures: Pitocin induction of labor Artificial rupture of membranes Epidural analgesia Intrauterine pressure catheter placement Primary low-transverse section complications: none 1: Gender: Female Disposition of : home Status at Discharge Cognitive/behavioral status at discharge: oriented Functional status at discharge: independent ambulation Overall status at discharge: patient is progressing back to baseline Time Spent with Patient Time attestation: Total time spent providing and/or coordinating discharge services: Time spent: Less than 30 minutes Objective Labs 12/16/22 05:55 Exam Vital Signs (past 8 hours): Oxygen Delivery Method Room Air Narrative Exam Narrative: Generally: Patient walking around in room, no acute distress Lungs: Clear to auscultation bilaterally Cardiovascular: Regular rate and rhythm Fundus: Firm at U Incision: Clean dry and intact with Aquacel dressing Extremities: 1+ edema, negative Homans Discharge Plan Discharge Plan Patient Disposition: Home Provider Discharge Comment: Call with fever, chills, or redness or drainage around the incision Call with bleeding vaginally more than a pad in an hour Ibuprofen 600 mg every 6 hours as needed Tylenol 650 mg every 6 hours as needed Stool softener until bowel returns to normal Discharge orders & Medications Prescriptions: New oxycodone 5 mg tablet 5 mg PO Q4H PRN (Reason: pain) Qty: 20 0RF Continued levothyroxine 50 mcg capsule 75 mcg PO DAILY Qty: 90 2RF prenat.vits,escobar,[id number]-[id number] Tablet 1 tab PO DAILY Fish Oil 100-160-1,000 mg capsule 1 cap PO .COMPLEX Rx Instructions: 1 cap orally when she remembers; oxymetazoline 0.05 % spray,non-aerosol 1 spray intranasal BID Patient Comments: Pt has been using this daily for years. At this point, if she stops she has such severe rebound congestion that she cannot breathe through her nose at all. Discontinued fluconazole [Diflucan] 150 mg tablet 150 mg PO DAILY Qty: 1 0RF ferrous sulfate [Feosol] 325 mg (65 mg iron) tablet 325 mg PO DAILY folic acid 400 mcg tablet 0.4 mg PO DAILY Follow up/Referrals: Addie aWters MD [Physician] - (Incision check on 12/23/2022 @ [address] Waters Post check with Evelin Rojo on 01/25/2023 @1100) Diet/Activity/Treatments Diet: Regular Activity: No heavy lifting Skin/Wound/Dressing Care Report to your healthcare provider any signs of infection, such as:: chills, fever, increased pain, unusual drainage and unusual redness Dressing: Do not remove Visit Report/Discharge Packet Instructions: DI for , DI for Prescription Opioid Use Stand Alone Forms: Discharge: Care, Patient Portal/API, Stroke Signs & Symptoms Discharge Data Primary Care Provider: Andria Hou Discharges patient from system. Discharge Date/Time: 12/17/22 13:30
== END 2022-12-17 13:30 | disposition home or self-care (01) | DRG 788 ==
PROVIDERS: Admitting Provider Obstetrics & Gynecology; PCP Student in an Organized Health Care Education/Training Program; Referring Provider Obstetrics & Gynecology; Visit Provider Obstetrics & Gynecology
PROC: 10D00Z1 Extraction of Products of Conception, Low, Open Approach (ICD-10-PCS; CPT 59514; principal; 2022-12-15 22:30)
DX: O76 Abnormality in fetal heart rate and rhythm complicating labor and delivery (principal); Z3A.39 39 weeks gestation of pregnancy; Z37.0 Single live birth; O13.4 Gestational [pregnancy-induced] hypertension without significant proteinuria, complicating childbirth; O99.284 Endocrine, nutritional and metabolic diseases complicating childbirth; E03.9 Hypothyroidism, unspecified; O26.893 Other specified pregnancy related conditions, third trimester; R51.9 Headache, unspecified; R03.0 Elevated blood-pressure reading, without diagnosis of hypertension
CPT/HCPCS: 36415; 59025; 59050; 59200; 59510; 59514; 76819; 82570; 84156; 84450; 84550; 85014; 85018; 85025; 86850; 86900; 86901; G0378; G0379; J0690; J1170; J1200; J1885; J2274; J2590; J3010

== ENCOUNTER → 2023-01-28 11:28 | Outpatient (CLI) | payer OTHER, SELFPAY ==
[2023-01-28 14:59] LABS: Thyroid Stimulating Hormone 0.539 uIU/mL (0.47-4.68)
[2023-01-28 16:24] LABS: Free T4, Direct Thyroxine 0.86 ng/dL (0.78-2.19)
== END ==
PROVIDERS: PCP Student in an Organized Health Care Education/Training Program; Referring Provider Obstetrics & Gynecology; Visit Provider Obstetrics & Gynecology
DX: E03.9 Hypothyroidism, unspecified (principal)
CPT/HCPCS: 36415; 84439; 84443

== ENCOUNTER 2023-07-04 14:55 | Emergency (ER) | payer OTHER, SELFPAY ==
[2023-07-04 14:58] VITALS: BP 119/78; PULSE 99; RESP 18; TEMP 36.7; O2SAT 97; BMI 41.5
[2023-07-04 15:30] LABS: Strep Grp A by PCR Rapid Positive (Negative)
--- NOTE | 2023-07-04 16:18 | ED_ITS ---
HPI - URI/Sore Throat General Chief Complaint: Upper Respiratory Symptoms Stated Complaint: throat&mouthswelling shut started sat not sleeping Time Seen by Provider: 07/04/23 16:09 Source: patient Mode of arrival: Ambulatory History of Present Illness HPI Narrative: 33-year-old female with no active medical problems with 3 days of a sore throat nausea fatigue and malaise. Believes that her tongue has also been swollen, she has not had itching or wheezing. Says that it is possible that she could be . [facility] care [facility] at [facility]. Related Data Home Medications Medication Instructions Recorded Confirmed omega 9-zou-rka-fish oil 100 1 cap PO .COMPLEX 04/23/22 01/28/23 mg-160 mg-1,000 mg capsule (Fish Oil) oxymetazoline 0.05 % nasal spray 1 spray intranasal BID 04/23/22 01/28/23 prenat.vits,escobar,ihx-mtay-ollzc 1 tab PO DAILY 04/23/22 01/28/23 Previous Rx's Medication Instructions Recorded levothyroxine 75 mcg tablet 75 mcg PO DAILY #90 tabs 06/06/23 hydrocodone 5 mg-acetaminophen 325 1 tab PO Q4-6H PRN pain #14 tabs 07/04/23 mg tablet penicillin V potassium 500 mg 500 mg PO QID #40 tabs 07/04/23 tablet Allergies Allergy/AdvReac Type Severity Reaction Status Date / Time No Known Drug Allergies Allergy Verified 07/04/23 14:58 Patient History Medical History (Updated 07/04/23 @ 17:36 by Juan Thomson MD) Acquired hypothyroidism Psoriasis Eczema Acne Allergies Migraines Headache Shoulder pain Carpal tunnel syndrome Anemia Vertigo Painful menstrual periods Ovarian cyst Nasal congestion Shingles HSV-1 infection Anxiety Depression Migraine with aura Hemorrhoids GERD (gastroesophageal reflux disease) PCOS (polycystic ovarian syndrome) Surgical History (Updated 04/23/22 @ 08:16 by Saray Simon RN) S/P ACL repair History of removal of skin mole Family History (Updated 04/23/22 @ 08:33 by Saray Simon RN) Mother Alcoholism Father Alcoholism Grandmother Coagulopathy Grandmother Leukemia Grandfather No problems noted. Family/Other Obsessive compulsive disorder Family/Other Neurological abnormality Brother Alcoholism Other Substance abuse Social History marital status: number of children: 3 (includes 2 stepchildren) household members: spouse, family (brother) and children lives independently: Yes caregiver/support person: Yes housing: apartment pets and animals: No education level: college (some college) occupational status: employed (desk/office job) current occupational exposures/hazards: No jacob/gnosticism: Jehovah'S Witness special jacob needs: No travel history: recent (domestic only) seatbelt use: always water heater temp set < 120 deg: Yes working smoke detector in home: Yes fire extinguisher in home: Yes carbon monox detector in home: Yes firearms in home: No do you feel safe at home: Yes Smoking Status: Current some day smoker second hand exposure: Yes ( also smokes) alcohol intake: former (very rarely when not ) substance use type: does not use during the past year weight has: decreased > 10 lbs (intentional w/ diet and exercise) well-balanced diet: daily or most days daily servings fruits/ve or more times/day caffeine: Yes (aware of 200mg limit) Type(s) of exercise: walking (~7 miles/day), weight lifting and yoga frequency: daily additional social history: Pt reports that she and her almost split up recently but have decided to stay together in light of this . She reports that is nervous and excited, confirms that she is safe in her home, no concerns about violence or infidelity. Long family Hx of alcohol and drug abuse and pt is very concerned about how this may affect her children. Smoking Status: Current some day smoker tobacco type: vaping alcohol intake frequency: 0-2 drinks per day Substance Use Type: does not use Exam Initial Vital Signs Initial Vital Signs: Vital Signs Temperature 98.0 F 07/04/23 14:58 Pulse Rate 99 H 07/04/23 14:58 Respiratory Rate 18 07/04/23 14:58 Blood Pressure 119/78 07/04/23 14:58 Pulse Oximetry 97 07/04/23 14:58 Oxygen Delivery Method Room Air 07/04/23 14:58 Uncomfortable but nontoxic appearing. Has a muffled voice no respiratory distress and no stridor. Tolerates a reclined posture without difficulty. HENMT Head: normocephalic and atraumatic Mouth: moist mucous membranes, No drooling, No malodorous breath, muffled voice, No trismus and other (Dentition is normal. No sublingual swelling I do not appreciate a definite) Throat: uvula midline (Bilateral beefy red tonsils with exudate present) Neck Lymphatic: lymphadenopathy Resp Auscultation: clear to auscultation bilaterally and no wheezes Skin General: dry skin and warm Rashes: no rashes Neuro General: patient alert and patient oriented x3 Course Orders Ordered: ED Orders 07/04/23 15:11 Strep Grp A by PCR Rapid Stat Discontinued Medications Dexamethasone (Dexamethasone 4 Mg/Ml Vial) 16 mg IV NOW ONE Stop: 07/04/23 16:15 Last Admin: 07/04/23 16:36 Dose: 16 mg Documented By: ЕЛЕНА Sodium Chloride (Normal Saline 0.9%) 1,000 mls @ 1,000 mls/hr IV BOLUS ONE Stop: 07/04/23 17:13 Last Admin: 07/04/23 16:36 Dose: 1,000 mls/hr Documented By: ЕЛЕНА Ceftriaxone Sodium 2,000 mg/ (Sodium Chloride) 100 mls @ 200 mls/hr IV NOW ONE Stop: 07/04/23 16:19 Last Infusion: 07/04/23 17:21 Dose: Infused Documented By: ЕЛЕНА Admin: 07/04/23 16:37 Dose: 200 mls/hr Documented By: ЕЛЕНА Ketorolac Tromethamine (Ketorolac 30 Mg/Ml Vial) 30 mg IV NOW ONE Stop: 07/04/23 16:15 Last Admin: 07/04/23 16:35 Dose: 30 mg Documented By: ЕЛЕНА Reevaluation(s) Reevaluation #1: After IV fluids Toradol and dexamethasone patient is feeling better. Was also given ceftriaxone Vital Signs Vital signs: Vital Signs - 8 hr 07/04/23 14:58 Temperature 98.0 F Pulse Rate 99 H Respiratory Rate 18 Blood Pressure 119/78 Pulse Oximetry 97 Oxygen Delivery Method Room Air MDM - URI/Sore Throat Lab Data Lab results narrative: Rapid strep is positive, test is negative Labs: Lab Results 07/04/23 Range/Units 15:11 Group A Strep (PCR) Positive H (Negative) Point of Care Testing Test Results Negative Urine Dip Bedside Urine Glucose Negative Bedside Urine Bilirubin - Negative Bedside Urine Ketone +/- 5 Urine Specific [place] 1.020 Bedside Urine Occult Blood +++ Bedside Urine pH 6.0 Bedside Urine Protein ++ 100 Bedside Urine Urobilinogen 2+ 4mg Bedside Urine Nitrite - Negative Bedside Urine Leukocytes +/- 15 Esterase MDM Narrative Medical decision making narrative: 33-year-old female presenting with pharyngitis. She is positive for strep, airway is intact, does not appear to have a peritonsillar abscess does not appear to be toxic the patient was concerned about an allergic reaction I do not see angioedema. She is discharged home on ibuprofen, a few Babbitt and penicillin. Discharge Plan Departure Patient Disposition: Home Clinical Impression: Acute streptococcal pharyngitis Instructions: DI for Strep Throat Activity Restrictions/Additional Instructions: Today, we treated you for strep throat. I have sent a prescription for penicillin to your pharmacy, take the full course of this antibiotic. I also sent a prescription for a few Babbitt that you can use as needed for pain. Additionally, ibuprofen 600 mg 3 times a day on a scheduled basis will help your pain. Get adequate fluids. Avoid acidic foods and hot foods. Cool soft diet is optimal. Although we have made every effort to ensure that you are safe for discharge, if your symptoms are getting worse, or if you are having other acute symptoms such as chest pain shortness of breath high fevers, abdominal pain or uncontrolled vomiting recheck in the emergency department. Prescriptions: New penicillin V potassium 500 mg tablet 500 mg PO QID Qty: 40 0RF hydrocodone-acetaminophen 5-325 mg tablet 1 tab PO Q4-6H PRN (Reason: pain) Qty: 14 0RF No Action levothyroxine 75 mcg tablet 75 mcg PO DAILY Qty: 90 3RF Rx Instructions: Please have PCP manage rx after this fill. Thank you prenat.vits,escobar,uua-edqz-luamg Tablet 1 tab PO DAILY Fish Oil 100-160-1,000 mg capsule 1 cap PO .COMPLEX Rx Instructions: 1 cap orally when she remembers; oxymetazoline 0.05 % spray,non-aerosol 1 spray intranasal BID Patient Comments: Pt has been using this daily for years. At this point, if she stops she has such severe rebound congestion that she cannot breathe through her nose at all. Referrals: Anrdia Hou MD [Primary Care Provider] - Stand Alone Forms: Patient Portal/API
[2023-07-04] MEDS: KETOROLAC 30 MG/ML VIAL IV (16:35)
[2023-07-04] MEDS: DEXAMETHASONE 4 MG/ML VIAL 16 MG IV (16:36)
[2023-07-04] MEDS: SODIUM CHLORIDE 0.9% 1,000 ML 1000 ML IV (16:36)
[2023-07-04] MEDS: cefTRIAXone 2,000 MG in SODIUM CHLORIDE 0.9% 100 ML 200 MG IV (16:37)
[2023-07-04 17:48] VITALS: BP 124/70; PULSE 80; RESP 14; TEMP 37.1; O2SAT 99
== END 2023-07-04 17:50 | disposition home or self-care (01) ==
PROVIDERS: Emergency Provider Emergency Medicine; PCP Student in an Organized Health Care Education/Training Program
DX: J02.0 Streptococcal pharyngitis (principal)
CPT/HCPCS: 81003; 81025; 87651; 96365; 96375; 99283; 99284; J0696; J1100; J1885

== ENCOUNTER 2023-07-24 12:21 | Emergency (ER) | payer OTHER, SELFPAY ==
[2023-07-24 12:41] VITALS: BP 126/85; PULSE 89; RESP 16; TEMP 37.1; O2SAT 95; BMI 44.8
--- NOTE | 2023-07-24 13:28 | ED.URI ---
HPI - URI/Sore Throat <CHERRY Goodman - Last Filed: 07/24/23 14:21> General Chief Complaint: Upper Respiratory Symptoms Stated Complaint: states strep throat Time Seen by Provider: 07/24/23 13:27 Source: patient Mode of arrival: Ambulatory History of Present Illness HPI Narrative: 33-year-old female, some day smoker and currently , presents emergency department with sore throat x2 days and believes she has another case of strep pharyngitis. Patient states that she has been recently treated with antibiotics, PCN, and last dose was approximately 6 days ago. Patient reports difficulty swallowing and has had a fever with T-max of 103?. Patient currently taking metronidazole for BV. Related Data Home Medications Medication Instructions Recorded Confirmed omega 9-kyb-dsx-fish oil 100 1 cap PO .COMPLEX 04/23/22 01/28/23 mg-160 mg-1,000 mg capsule (Fish Oil) oxymetazoline 0.05 % nasal spray 1 spray intranasal BID 04/23/22 01/28/23 prenat.vits,escobar,fbu-[id number]-[id number] 1 tab PO DAILY 04/23/22 01/28/23 Previous Rx's Medication Instructions Recorded levothyroxine 75 mcg tablet 75 mcg PO DAILY #90 tabs 06/06/23 hydrocodone 5 mg-acetaminophen 325 1 tab PO Q4-6H PRN pain #14 tabs 07/04/23 mg tablet penicillin V potassium 500 mg 500 mg PO QID #40 tabs 07/04/23 tablet amoxicillin 875 mg-potassium 1 tab PO BID Strep pharyngitis 10 07/24/23 clavulanate 125 mg tablet days #20 tabs Allergies Allergy/AdvReac Type Severity Reaction Status Date / Time No Known Drug Allergies Allergy Verified 07/04/23 14:58 Review of Systems <CHERRY Goodman - Last Filed: 07/24/23 14:21> Review of Systems Narrative: Narrative: See HPI. GENERAL: Denies chills, fatigue, fever, sweats. HEENT: Denies sinus pain, ear pain, dizziness. Endorses sore throat and difficulty swallowing. RESPIRATORY: Denies dyspnea, cough, wheezing, sputum. CARDIOVASCULAR: Denies chest pain, palpitations, edema. GASTROINTESTINAL: Denies nausea, vomiting, abdominal pain, diarrhea, constipation. : Denies dysuria, frequency, incontinence, hematuria, urinary retention, flank pain. MSK: Denies weakness, joint pain, or bony pain. SKIN: Denies rash, skin lesions, or pruritis. NEUROLOGIC: Denies weakness, dizziness, headache, numbness, confusion. PSYCHIATRIC: No concerning psychosocial issues. Patient History <CHERRY Goodman - Last Filed: 07/24/23 14:21> Medical History Acquired hypothyroidism Psoriasis Eczema Acne Allergies Migraines Headache Shoulder pain Carpal tunnel syndrome Anemia Vertigo Painful menstrual periods Ovarian cyst Nasal congestion Shingles HSV-1 infection Anxiety Depression Migraine with aura Hemorrhoids GERD (gastroesophageal reflux disease) PCOS (polycystic ovarian syndrome) Surgical History S/P ACL repair History of removal of skin mole Family History Mother Alcoholism Father Alcoholism Grandmother Coagulopathy Grandmother Leukemia Grandfather No problems noted. Family/Other Obsessive compulsive disorder Family/Other Neurological abnormality Brother Alcoholism Other Substance abuse Social History marital status: number of children: 3 (includes 2 stepchildren) household members: spouse, family (brother) and children lives independently: Yes caregiver/support person: Yes housing: apartment pets and animals: No education level: college (some college) occupational status: employed (desk/office job) current occupational exposures/hazards: No jacob/rastafarian: Mandaen special jacob needs: No travel history: recent (domestic only) seatbelt use: always water heater temp set < 120 deg: Yes working smoke detector in home: Yes fire extinguisher in home: Yes carbon monox detector in home: Yes firearms in home: No do you feel safe at home: Yes Smoking Status: Current some day smoker second hand exposure: Yes ( also smokes) alcohol intake: former (very rarely when not ) substance use type: does not use during the past year weight has: decreased > 10 lbs (intentional w/ diet and exercise) well-balanced diet: daily or most days daily servings fruits/ve or more times/day caffeine: Yes (aware of 200mg limit) Type(s) of exercise: walking (~7 miles/day), weight lifting and yoga frequency: daily additional social history: Pt reports that she and her almost split up recently but have decided to stay together in light of this . She reports that is nervous and excited, confirms that she is safe in her home, no concerns about violence or infidelity. Long family Hx of alcohol and drug abuse and pt is very concerned about how this may affect her children. Smoking Status: Current some day smoker tobacco type: vaping alcohol intake frequency: 0-2 drinks per day Substance Use Type: does not use Exam <CHERRY Goodman - Last Filed: 07/24/23 14:21> Narrative Exam Narrative: Exam Narrative: GENERAL: This is a well-nourished, well-developed patient, in no acute distress. HEAD: Atraumatic. Normocephalic. EYES: Pupils equal round and reactive. No scleral icterus, injection or drainage. ENT: Nose without bleeding, purulent drainage. Throat with erythema, tonsillar hypertrophy or exudate. Uvula midline. Airway patent. TMs and canals clear. No sinus tenderness. NECK: Trachea midline. No JVD or lymphadenopathy. Nontender. CARDIOVASCULAR: Regular rate and rhythm without murmurs, peripheral pulses intact, cap refill <2 sec. RESPIRATORY: Breath sounds equal and clear bilaterally. No wheezes, rales, or rhonchi. No cough. No increased respiratory effort. No accessory muscle use. MSK: Moves all extremities. Normal range of motion, no clubbing or edema. Neurovascularly intact. NEURO: A&O x 3. SKIN: Warm, dry, no rashes or lesions noted. Initial Vital Signs Initial Vital Signs: Vital Signs Temperature 98.7 F 07/24/23 12:41 Pulse Rate 89 07/24/23 12:41 Respiratory Rate 16 07/24/23 12:41 Blood Pressure 126/85 07/24/23 12:41 Pulse Oximetry 95 07/24/23 12:41 Oxygen Delivery Method Room Air 07/24/23 12:41 Reviewed <Terrell Quiroz DO - Last Filed: 07/24/23 15:15> Initial Vital Signs Initial Vital Signs: Vital Signs Temperature 98.7 F 07/24/23 12:41 Pulse Rate 89 07/24/23 12:41 Respiratory Rate 16 07/24/23 12:41 Blood Pressure 126/85 07/24/23 12:41 Pulse Oximetry 95 07/24/23 12:41 Oxygen Delivery Method Room Air 07/24/23 12:41 Course <CHERRY Goodman - Last Filed: 07/24/23 14:21> Orders Ordered: ED Orders 07/24/23 13:36 Strep Grp A by PCR Rapid Stat Throat Culture Stat Vital Signs Vital signs: Vital Signs - 8 hr 07/24/23 12:41 07/24/23 13:48 Temperature 98.7 F Pulse Rate 89 78 Respiratory Rate 16 18 Blood Pressure 126/85 120/80 Pulse Oximetry 95 98 Oxygen Delivery Method Room Air Room Air <DO Beatris Zepeda Last Filed: 07/24/23 15:15> Orders Ordered: ED Orders 07/24/23 13:36 Strep Grp A by PCR Rapid Stat Throat Culture Stat Vital Signs Vital signs: Vital Signs - 8 hr 07/24/23 12:41 07/24/23 13:48 Temperature 98.7 F Pulse Rate 89 78 Respiratory Rate 16 18 Blood Pressure 126/85 120/80 Pulse Oximetry 95 98 Oxygen Delivery Method Room Air Room Air MDM - URI/Sore Throat <CHERRY Goodman - Last Filed: 07/24/23 14:21> Differential Diagnosis Differential diagnosis: Likely upper respiratory infection, viral infection and pharyngitis Lab Data Labs: Lab Results 07/24/23 Range/Units 13:36 Group A Strep (PCR) Positive H (Negative) MDM Narrative Medical decision making narrative: 33-year-old female with worsening sore throat. Rapid strep was positive for strep. Will treat with amoxicillin with clavulanic due to initial treatment being penicillin. Patient is no longer there are no concerns about infant exposure. Discussed supportive care measures including cool fluids throughout the day, gargling with warm salt water, Tylenol or ibuprofen as needed for discomfort. Discussed plan of care and return precautions with patient, who verbalized understanding and was agreeable with course of action. <Terrell Quiroz DO - Last Filed: 07/24/23 15:15> Lab Data Labs: Lab Results 07/24/23 Range/Units 13:36 Group A Strep (PCR) Positive H (Negative) Discharge Plan Departure Patient Disposition: Home Clinical Impression: Pharyngitis Qualifiers: Pharyngitis/tonsillitis etiology: streptococcus Qualified Code(s): J02.0 - Streptococcal pharyngitis Instructions: DI for Strep Throat Activity Restrictions/Additional Instructions: *You have been diagnosed with strep pharyngitis. Since you were treated previously with penicillin, will treat with Augmentin this time. Good supportive care includes gargling with warm salt water, cool fluids throughout the day and Tylenol or ibuprofen as needed for discomfort. Please follow-up with your family doctor if symptoms persist or worsen. *What to do: *Please continue to take your regular medications as directed. [x ] New medication prescriptions sent to your pharmacy: [[facility]] [ ] New medication written as a paper prescription [ ] No new medications given *Please follow up with your primary care provider in 2-3 days, call for an appointment. Let them know you were seen in the Emergency Department and that we ask that you be seen in follow up. We will electronically transmit a record of today's note if your PCP is in our system *If you do not have a primary care provider please contact the [facility] Resource line at [phone]. They will ask some questions about your medical history and help get you set up with a doctor in the community. ? Return to ER if you should have any new, worsening or concerning symptoms, such as worsening pain, severe headache, confusion, chest pain, difficulty breathing, fever greater than 101 F, shaking chills, persistent vomiting to the point that you cannot drink fluids, or other new or worsening symptoms. Prescriptions: New amoxicillin-pot clavulanate 875-125 mg tablet 1 tab PO BID 10 Days Qty: 20 0RF No Action levothyroxine 75 mcg tablet 75 mcg PO DAILY Qty: 90 3RF Rx Instructions: Please have PCP manage rx after this fill. Thank you prenat.vits,escobar,btb-zgag-dbbrb Tablet 1 tab PO DAILY Fish Oil 100-160-1,000 mg capsule 1 cap PO .COMPLEX Rx Instructions: 1 cap orally when she remembers; oxymetazoline 0.05 % spray,non-aerosol 1 spray intranasal BID Patient Comments: Pt has been using this daily for years. At this point, if she stops she has such severe rebound congestion that she cannot breathe through her nose at all. penicillin V potassium 500 mg tablet 500 mg PO QID Qty: 40 0RF hydrocodone-acetaminophen 5-325 mg tablet 1 tab PO Q4-6H PRN (Reason: pain) Qty: 14 0RF Referrals: Andria Hou MD [Primary Care Provider] - Stand Alone Forms: Patient Portal/API ED Sign-out <Terrell Quiroz, DO - Last Filed: 07/24/23 15:15> Cosign ED Attending Cosignature Attestation: Dr Quiroz Co-Sign Statement: I was available for consultation during this patient's emergency department visit. This chart is signed by myself for administrative purposes only. I did not have direct contact with this patient during this visit. They were seen independently by the [facility].
[2023-07-24 13:48] VITALS: BP 120/80; PULSE 78; RESP 18; O2SAT 98
[2023-07-24 13:56] LABS: Strep Grp A by PCR Rapid Positive (Negative)
== END 2023-07-24 14:21 | disposition home or self-care (01) ==
PROVIDERS: Emergency Provider Registered Nurse; PCP Student in an Organized Health Care Education/Training Program
DX: J02.0 Streptococcal pharyngitis (principal); F17.290 Nicotine dependence, other tobacco product, uncomplicated
CPT/HCPCS: 87070; 87147; 87651; 99281; 99284